=== PATIENT | female | born 1975 | race Caucasian/White ===

== ENCOUNTER 2016-11-26 13:30 | Emergency (ER) | payer OTHER ==
[~2016-11-26] VITALS: Ht 152.4 cm; Wt 68.9 kg
[~2016-11-26 13:30] MED LIST: AGM875T PO; ALPR1T; BUSP15TA60 PO; CARBATROL; CLON1TAB69; CRB200T PO; CYAN500T2 PO; CYCL10TA45; DESV50TA PO; DIAZ10TA PO; DIAZ5TAB3 PO; EPIDRIN; ESCI20TA2 PO; ESCI20TA38 PO; FLUO40CA; FLX20C; GABA-490 PO; HYDR25CA5; HYDR50CA3 PO; HYDROCODONE; Hydroxyzine Hcl PO; IBUP-30 PO; KLONIPIN; LAMO200T14 PO; LAMO200T2 PO; LEVE100015; LEVE500T6; LEVE750T5 PO; LISD50CA2 PO; LORA-794 PO; LORA1TAB PO; LTH300C; LTH450TCR; MELA10TA PO; MELOXICAM; METH750T3; NF-ESOM40C PO; PRAZ1CAP5 PO; PREMARIN; PROP10TA8 PO; PRX20T; QUET150T PO; RISPERDAL; TEMA30CA6; TOPI200T19 PO; TRAZ150T42 PO; TRAZ300T3; TRAZ300T3 PO; TRILIPTAL; ZIPR80CA9 PO; ZLP10T; ZPR40C PO; [UNRECOGNIZED DRUG - OTHER]; [UNRECOGNIZED DRUG - OTHER]; [UNRECOGNIZED DRUG - OTHER]
--- OUTSIDE RECORDS SUMMARY | 2016-11-26 13:40 | XMS REPORT | Continuity of Care Document ---
Author Author [facility] Organization [facility] Address Unknown Phone Unavailable Care Team Providers Care Thickener Operator Name Role Phone Emma Cordero PCP [phone] Source Comments Some departments are not documenting in the electronic medical record. If you do not see the information that you expected, contact Release of Information in the Health Information Management department at [phone] for further assistance in locating additional records.[facility] Active Allergies and Adverse Reactions Allergen Noted Date Severity Reactions Comments Effexor 12/26/2015 Low UNKNOWN Tramadol 03/26/2011 SEE COMMENTS seizures Trileptal 03/26/2011 Low SEE COMMENTS Seizures and low na. Current Medications Prescription Sig. Disp. Refills Start End Date Status Date diazepam (VALIUM) 5 mg PO Take 5 mg by mouth twice Active tablet daily as needed for Anxiety. ESCITALOPRAM OXALATE Take 20 mg by mouth Active (LEXAPRO PO) daily. trazodone (DESYREL) 50 mg Take 150 mg by mouth at Active PO tablet bedtime daily. 150mg-300mg HS hydrOXYzine (ATARAX) 10 Take 50 mg by mouth four Active mg PO tablet times daily as needed. propranolol (INDERAL) 10 Take 20 mg by mouth as Active mg PO tablet directed. 20mg up to 3x daily for anxiety/blood pressure Indications: anxiety IBUPROFEN (ADVIL PO) Take 800 mg by mouth as Active Needed (600-800mg). prazosin (MINIPRESS) 2 mg Take 1-2 mg by mouth at Active capsule bedtime daily. lisdexamfetamine(+) Take 50 mg by mouth every Active (VYVANSE) 50 mg capsule morning FLUTICASONE PROPIONATE Use 50 mcg as directed as Active (BULK) MISC Needed. doxycycline (VIBRAMYCIN) Take 100 mg by mouth Active 100 mg tablet twice daily. Temporary for MRSA SULFAMETHOXAZOLE/TRIMETHO Take 160 mg by mouth Active PRIM (SEPTRA PO) twice daily. Temporarily for MRSA MULTIVITAMINS WITH Take 2 Tabs by mouth Active FLUORIDE (MULTI-VITAMIN daily. PO) DOCOSAHEXANOIC ACID/EPA Take 600 mg by mouth Active (FISH OIL PO) daily. cholecalciferol (VITAMIN Take 1,000 Units by mouth Active D-3) 1,000 units tablet daily. Magnesium 250 mg tab Take 250 mg by mouth Active daily. cetirizine (ZYRTEC) 10 mg Take 10 mg by mouth Active tablet daily. levETIRAcetam (KEPPRA) Take 1 Tab by mouth twice 60 Tab 11 12/26/19 Active 500 mg tablet daily. Indications: 16 PARTIAL EPILEPSY TREATMENT ADJUNCT buPROPion SR(+) Take 100 mg by mouth Active (WELLBUTRIN-SR) 100 mg twice daily. tablet pantoprazole DR Take 40 mg by mouth as Active (PROTONIX) 40 mg tablet Needed. Indications: GASTROESOPHAGEAL REFLUX amphetamine-dextroampheta Take 20 mg by mouth three Active mine XR (ADDERALL XR) 20 times daily mg capsule clonazePAM (KLONOPIN) 1 Take 1 mg by mouth twice Active mg tablet daily as needed (anxiety). amitriptyline (ELAVIL) 10 Take 30-50 mg by mouth at Active mg tablet bedtime as needed (tension SALCEDO/ stress geriatric physical therapist). ondansetron hcl (ZOFRAN) Take 8 mg by mouth every Active 8 mg tablet 8 hours as needed for Nausea or Vomiting. OLANZapine (ZYPREXA) 5 mg Take 2.5-5 mg by mouth at Active tablet bedtime daily. cyanocobalamin (VITAMIN Take 1,500 mcg by mouth Active B-12) 1,000 mcg tablet daily. turmeric root extract 500 Take 500 mg by mouth Active mg cap twice daily. Garlic 1,000 mg cap Take 1,000 mg by mouth. Active Up to 4x daily RADHIKA ROOT (BULK) MISC Use 550 mg as directed Active daily. Lactobacillus rhamnosus Take by mouth as Active GG (LACTOBACILLUS directed twice daily with RHAMNOSUS (GG)) 15 meals. 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 09/19/2016 Most Recent Encounters Date Type Specialty Providers Description 09/19/2016 Office Visit Neurology Mike Pearce MD Nonepileptic episode (HCC) (Primary Dx); Nonintractable epilepsy without status epilepticus, unspecified epilepsy type (HCC); Panic disorder with agoraphobia Immunizations Name Dates Previously Given Next Due FLU VACCINE >3YO 10/20/2008 (Preservative Free) Social History Tobacco Use Types Packs/Day Years Used Date Current Every Day Smoker Cigarettes 1 7 Smokeless Tobacco: Never Used Alcohol Use Drinks/Week oz/Week Comments No 1 Last Filed Vital Signs Vital Sign Reading Time Taken Blood Pressure 139/70 09/19/2016 9:59 AM DATA ACQUISITION TECHNICIAN Pulse 58 09/19/2016 9:59 AM DATA ACQUISITION TECHNICIAN Temperature 37 C (98.6 F) 04/25/2011 5:17 PM CDT Respiratory Rate - - Height 1.524 m (5') 09/19/2016 9:59 AM DATA ACQUISITION TECHNICIAN Weight 72.122 kg (159 lb) 09/19/2016 9:59 AM DATA ACQUISITION TECHNICIAN Body Mass Index 31.05 09/19/2016 9:59 AM DATA ACQUISITION TECHNICIAN Oxygen Saturation 100% 09/19/2016 9:59 AM DATA ACQUISITION TECHNICIAN Plan of Care Date Type Specialty Providers Description 03/25/2017 Appointment Neurology Mike Pearce MD [address] [facility] [place] [address] [place] [address] [phone] (Fax) Health Maintenance Due Date Last Done Comments Physical (Comprehensive) 1980 Exam Pertussis Vaccine 1984 Tetanus Vaccine 1990 Cervical Cancer Screening 1994 Breast Cancer Screening 2013 Influenza Vaccine 05/17/2016 10/20/2008 Results from Last 3 Months Not on file
--- NOTE | 2016-11-26 14:38 | ED General ---
General Chief Complaint: Back Problems Stated Complaint: LOW BACK PAIN/UTI SYMPTOMS LETHARGIC Nursing Triage Note: Pt c/o low back pain x2 weeks and urinary frequency. Pt also c/o lower abd pain. Nursing Sepsis Screen: No Definite Risk Source of Information: Patient, Spouse Exam Limitations: No Limitations History of Present Illness Time Seen by Provider: 14:21 Initial Comments Patient presents to the ED with numerous complaints. Patient initially reported low back pain for 2 weeks as well as urinary frequency and lower abdominal pain. Patient states lower abdominal pain has been present for at least a couple of years. Patient is very difficult to keep focused and is a poor historian. Flight of ideas. Patient repeatedly reverts back to concern over MRSA "everywhere". Denies fevers, vomiting, diarrhea. Patient has multiple specialist. Patient is convinced that she has MRSA in her lungs and blood based on her research online. Timing/Duration: Other (2 wk onset of urinary symptoms and LBP. "a couple year " h/o lower abdominal pain.) Modifying Factors: worse with Medication (no improvement with antibiotics) Allergies and Home Medications Allergies Coded Allergies: carisoprodol (Unverified Allergy, Mild, 03/27/09) oxcarbazepine (Unverified Allergy, Mild, 03/27/09) tramadol (Unverified Allergy, Unknown, 03/12/15) Home Medications 10 MG TAB #30 10 MG PO TID PRN PRN ANXIETY Prescribed by: DAISY ABARCA on 03/14/15 1244 Amoxicillin/Clavulanate K 875 Mg Tab #12 875 MG PO BID WITH MEALS Prescribed by: DAISY ABARCA on 03/14/15 1244 Mupirocin Calcium 15 Gm Cream..g. #1 15 GM TP UD apply bactroban to the nostrils BID x5d. Repeatedly squeeze the nostrils for 1-2 min after application. Prescribed by: TIFFANY VORA on 11/26/161947 Ondansetron 8 Mg Tab.rapdis #10 8 MG PO Q6H PRN PRN NAUSEA Prescribed by: TIFFANY VORA on 11/26/161947 Constitutional: No chills, No diaphoresis, dizzinessNo fever, malaise other ( fatigue) EENTM: no symptoms reported Respiratory: No cough, No short of breath, No stridor, No wheezing Cardiovascular: no symptoms reported Gastrointestinal: see HPI abdominal painNo constipation, No diarrhea, No nausea, No vomiting Genitourinary: see HPINo decreased output, No discharge, No dysuria, frequencyNo hematuria, pain (suprapubic pain) Musculoskeletal: no symptoms reported Skin: other (states she has "MRSA everywhere".) Psychiatric/Neurological: No Symptoms Reported All Other Systems Reviewed Negative Unless Noted: Yes (Negative excepted noted.) Past Gunmben-Gcmqmx-Msqqof Hx Patient Social History Recent Foreign Travel: No Contact w/Someone Who Travel: No Recent Infectious Disease Expo: No Immunizations Up To Date Tetanus Booster (TDap): Unknown Surgeries HX Surgeries: Yes (HYSTERECTOMY,APPY,ENDOMETRIOSIS REMOVED) Surgeries: Appendectomy, Hysterectomy Respiratory Hx Respiratory Disorders: No Cardiovascular Hx Cardiac Disorders: No Neurological Hx Neurological Disorders: Yes Reproductive System Hx Reproductive Disorders: Yes (GR6,PARA3-2MISCARRIAGES,1 TUBAL PREG.) Genitourinary Hx Genitourinary Disorders: Yes (BLADDER TIE-UP,HURTS WHEN URINATES) Gastrointestinal Hx Gastrointestinal Disorders: Yes Musculoskeletal Hx Musculoskeletal Disorders: No Endocrine Hx Endocrine Disorders: Yes HEENT HX ENT Disorders: No Psychosocial Hx Psychiatric Problems: Yes (DIAGNOSED BIPOLAR PER PT) Behavioral Health Disorders: Suicide Attempts, Depression Integumentary HX Skin/Integumentary Disorder: Yes ("MRSA everywhere") Blood Transfusions Hx Blood Disorders: No Reviewed Nursing Assessment Reviewed/Agree w Nursing PMH: Yes Family Medical History Significant Family History: No Pertinent Family Hx Family Medial History: Physical Exam Vital Signs Vital Sign - Last 12Hours 11/26/16 14:23 Temp 97.3 Pulse 85 Resp 18 B/P 140/80 Pulse Ox 100 O2 Delivery Room Air Capillary Refill : Less Than 3 Seconds General Appearance: WD/WN Anxious Eyes: Bilateral Eye EOMI, Bilateral Eye Normal Inspection, Bilateral Eye PERRL HEENT: PERRL/EOMI Pharynx Normal Other (oral mucosa dry. Multiple scars on the face (from previous infections per patient).) Neck: Full Range of Motion Normal Inspection Non Tender Supple Respiratory: Lungs Clear Normal Breath Sounds No Accessory Muscle Use No Respiratory Distress Cardiovascular: Regular Rate, Rhythm No Murmur Normal Peripheral Pulses Gastrointestinal: Normal Bowel Sounds No Organomegaly SoftNo Distended, Guarding (generalized)No Mass, No Rebound, Tenderness (generalized tenderness.) Back: Normal Inspection Extremity: Normal Capillary Refill Normal Inspection No Pedal Edema Neurologic/Psychiatric: Alert Oriented x3 Depressed Affect Other (patient is very tearful and anxious.) Skin: Normal Color Warm/Dry Other (Multiple scars on the face (from previous infections per patient).) Progress/Results/Core Measures Results/Orders Lab Results My Orders Medications Given in ED Vital Signs/I&O Blood Pressure Mean: 100 Diagnostic Imaging Diagonstic Imaging: CT Plain Films/CT/US/NM/MRI: abdomen, pelvis Comments DISCUSSION: The visualized lung bases are unremarkable. Normal heart size. No pleural or pericardial fluid. The gallbladder is mostly contracted though otherwise unremarkable. The liver, stomach, pancreas, spleen, and adrenal glands are unremarkable. The kidneys appear normal bilaterally without stone, hydronephrosis, or mass. The uterus is surgically absent. The urinary bladder is unremarkable. Mild constipation. No obstruction, pneumatosis or pneumoperitoneum. No ascites or pathologically enlarged lymph nodes identified. The abdominal aorta is normal in caliber. No acute osseous abnormality identified. IMPRESSION: 1. Constipation. No other acute abnormality identified. Dictated by: Dictated on workstation # [id number] Reviewed: Reviewed by Me (radiology report reviewed by me.) Departure Communication Progress Notes Laboratory findings discussed with the patient. Patient is very agitated as no one will perform blood cultures. Patient also continues to have moderate abdominal generalized tenderness. We'll proceed with sedimentation rate, CRP, CT scan of the abdomen and pelvis, and blood cultures. 1945 all laboratory findings and diagnostic findings discussed with patient. Patient reports feeling much better after IV fluids and medications. Proceed with discharge to home. Patient states she is scheduled to see the [facility] at the end of this month. Patient case discussed with Dr. Villarreal. Dr. Villarreal reports patient is scheduled to see infectious disease in [place] December 13. Request patient to follow-up as an outpatient in the office for recheck. Recommendations by Dr. Villarreal were discussed with the patient. Patient has aggravated and states she is seeing the [facility] and does not understand why everybody keeps saying she is seeing infectious disease. Advised patient to proceed with the appointment as previously scheduled and to contact Dr. Villarreal's office for follow-up appointment. All return precautions were discussed with the patient. Patient voices understanding and agrees with the treatment plan. Patient case discussed with Dr. Kamara, he agrees with the plan of care. Impression Impression: Primary Impression: Abdominal pain Additional Impressions: Constipation History of MRSA infection Disposition: 01 HOME, SELF-CARE Condition: Improved Departure-Patient Inst. Decision time for Depature: 19:42 Referrals: JACEK VILLARREAL MD (PCP/Family) Primary Care Physician Patient Instructions: Acute Abdomen (Belly Pain), Child (DC) Add. Discharge Instructions: All discharge instructions reviewed with patient and/or family. Voiced understanding. Medications as instructed. Continue usual home medications. Metamucil, Citrucel, or Benefiber [id number] as directed for constipation. Colace stool softener 100 mg by mouth 2-3 times daily as needed for constipation. Drink plenty of fluids. Dulcolax suppository or magnesium citrate [id number] for severe constipation. Follow-up with the specialist at [facility] December 13 as previously scheduled. Follow-up with [facility] for recheck. Return to the emergency department for worsened pain, fever, vomiting, vomiting blood, rectal bleeding, black stools, inability to urinate, fever, or any other concerns. Scripts Ondansetron (Zofran Odt)8 Mg Tab.rapdis8 Mg PO Q6H PRN NAUSEA #10 TAB Ref 0 Prov:TIFFANY VORA 11/26/16 Mupirocin Calcium (Bactroban)15 Gm Cream..g.15 Gm TP UD #1 TUBE Ref 0 apply bactroban to the nostrils BID x5d. Repeatedly squeeze the nostrils for 1-2 min after application. Prov:TIFFANY VORA 11/26/16 TIFFANY VORA Nov 26, 2016 14:38 Urine Bacteria NONE /HPF Urine Barbiturates Screen NEGATIVE NEGATIVE Urine Benzodiazepines Screen POSITIVE H NEGATIVE Urine Bilirubin NEGATIVE NEGATIVE Urine Cannabinoids Screen NEGATIVE NEGATIVE Urine Casts NONE /LPF Urine Clarity CLEAR Urine Cocaine Screen NEGATIVE NEGATIVE Urine Color YELLOW Urine Crystals NONE /LPF Urine Culture Indicated NO Urine Glucose (UA) NEGATIVE NEGATIVE Urine Ketones NEGATIVE NEGATIVE Urine Leukocyte Esterase NEGATIVE NEGATIVE Urine Methadone Screen NEGATIVE NEGATIVE Urine Methamphetamines Screen NEGATIVE NEGATIVE Urine Mucus NEGATIVE /LPF Urine Nitrite NEGATIVE NEGATIVE Urine Opiates Screen NEGATIVE NEGATIVE Urine Oxycodone Screen NEGATIVE NEGATIVE Urine Phencyclidine Screen NEGATIVE NEGATIVE Urine Propoxyphene Screen NEGATIVE NEGATIVE Urine Protein NEGATIVE NEGATIVE Urine RBC NONE /HPF Urine RBC (Auto) NEGATIVE NEGATIVE Urine Specific Ethel 1.020 1.016-1.022 Urine Squamous Epithelial Cells 2-5 /HPF Urine Urobilinogen NORMAL NORMAL MG/DL Urine WBC NONE /HPF Urine pH 6 5-9 My Orders Orders-TIFFANY VORA Ua Culture If Indicated (11/26/16 14:21) Saline Lock/Iv-Start (11/26/16 15:19) Comprehensive Metabolic Panel (11/26/16 15:19) Cbc With Automated Diff (11/26/16 15:19) Drug Screen Stat (Urine) (11/26/16 15:24) Ns Iv 1000 Ml (Sodium Chloride 0.9%) (11/26/16 16:10) Blood Culture (11/26/16 17:02) Ct Abdomen/Pelvis W (11/26/16 17:02) Hs C Reactive Protein (11/26/16 17:02) Erythrocyte Sedimentation Rate (11/26/16 17:02) Ketorolac Injection (Toradol Injection) (11/26/16 17:02) Iohexol Injection (Omnipaque 350 Mg/Ml 1 (11/26/16 17:15) Ns (Ivpb) (Sodium Chloride 0.9% Ivpb Bag (11/26/16 17:15) Medications Given in ED Current Medications Medications Dose Ordered Sig/Michael Route Start Time Stop Time Status Last Admin Dose Admin Iohexol 100 ml ONCE ONCE IV 11/26/16 17:15 11/26/16 17:16 DC 11/26/16 18:34 100 ML Sodium Chloride 100 ml ONCE ONCE IV 11/26/16 17:15 11/26/16 17:16 DC 11/26/16 18:34 80 ML Sodium Chloride 1,000 ml @ 0 mls/hr Q0M ONCE IV 11/26/16 16:10 11/26/16 16:11 DC 11/26/16 17:32 0 MLS/HR Vital Signs/I&O Vital Sign - Last 12Hours 11/26/16 11/26/16 14:23 17:31 Temp 97.3 97.3 Pulse 85 Resp 18 B/P 140/80 Pulse Ox 100 O2 Delivery Room Air Blood Pressure Mean: 100 Departure Impression Impression: Primary Impression: Abdominal pain Additional Impressions: Constipation History of MRSA infection Disposition: 01 HOME, SELF-CARE Condition: Improved Departure-Patient Inst. Decision time for Depature: 19:42 Referrals: JACEK VILLARREAL MD (PCP/Family) Primary Care Physician Patient Instructions: Acute Abdomen (Belly Pain), Child (DC) Add. Discharge Instructions: All discharge instructions reviewed with patient and/or family. Voiced understanding. Medications as instructed. Continue usual home medications. Metamucil, Citrucel, or Benefiber [id number] as directed for constipation. Colace stool softener 100 mg by mouth 2-3 times daily as needed for constipation. Drink plenty of fluids. Dulcolax suppository or magnesium citrate [id number] for severe constipation. Follow-up with the specialist at [facility] December 13 as previously scheduled. Follow-up with [facility] for recheck. Return to the emergency department for worsened pain, fever, vomiting, vomiting blood, rectal bleeding, black stools, inability to urinate, fever, or any other concerns. Scripts Ondansetron (Zofran Odt)8 Mg Tab.rapdis8 Mg PO Q6H PRN NAUSEA #10 TAB Ref 0 Prov:TIFFANY VORA 11/26/16 Mupirocin Calcium (Bactroban)15 Gm Cream..g.15 Gm TP UD #1 TUBE Ref 0 apply bactroban to the nostrils BID x5d. Repeatedly squeeze the nostrils for 1-2 min after application. Prov:TIFFANY VORA 11/26/16 TIFFANY VORA Nov 26, 2016 14:38
[2016-11-26 15:38] LABS: BILIRUBIN,URINE NEGATIVE (NEGATIVE); KETONES,URINE NEGATIVE (NEGATIVE); LEUKOCYTE ESTERASE ,URINE NEGATIVE (NEGATIVE); NITRITE,URINE NEGATIVE (NEGATIVE); PH,URINE 6 (5-9); PROTEIN,URINE NEGATIVE (NEGATIVE); UROBILINOGEN,URINE NORMAL (NORMAL)
[2016-11-26 15:38] LABS: BASOPHILS % (AUTO) 0 % (0-10); EOSINOPHILS # (AUTO) 0.2 10^3/uL (0.0-0.3); EOSINOPHILS % (AUTO) 3 % (0-10); LYMPHOCYTES # (AUTO) 2.4 X 10^3 (1.0-4.0); LYMPHOCYTES % (AUTO) 37 % (12-44); MEAN CORPUSCULAR HEMOGLOBIN 30 PG (25-34); MEAN CORPUSCULAR HGB CONC 35 G/DL (32-36); MEAN CORPUSCULAR VOLUME 85 FL (80-99); MONOCYTES # (AUTO) 0.5 X 10^3 (0.0-1.0); MONOCYTES % (AUTO) 7 % (0-12); NEUTROPHILS # (AUTO) 3.4 X 10^3 (1.8-7.8); NEUTROPHILS % (AUTO) 52 % (42-75); PLATELET COUNT 299 10^3/uL (130-400); RED BLOOD COUNT 4.72 10^6/uL (4.35-5.85); RED CELL DISTRIBUTION WIDTH 12.3 % (10.0-14.5); WHITE BLOOD COUNT 6.5 10^3/uL (4.3-11.0)
[2016-11-26 15:56] LABS: ALBUMIN 4.5 G/DL (3.2-4.5); BILIRUBIN,TOTAL 0.2 MG/DL (0.1-1.0); CALCIUM 9.1 MG/DL (8.5-10.1); CREATININE SERUM 1.16 MG/DL (0.60-1.30); POTASSIUM 4.8 MMOL/L (3.6-5.0); TOTAL PROTEIN 6.9 G/DL (6.4-8.2)
[2016-11-26] MEDS ORDERED: NS IV 1000 ML 1,000 ML IV ONE (16:10)
[2016-11-26] MEDS ORDERED: KETOROLAC 30 MG/ML VIAL IVP STA (17:02)
[2016-11-26] MEDS ORDERED: IOHEXOL 350 MG/ML 100 ML (OMNIPAQUE 350) VIAL IV ONE (17:15)
[2016-11-26] MEDS ORDERED: NS 100 ML (IVPB) BAG IV ONE (17:15)
--- NOTE | 2016-11-26 18:55 | Diagnostic Imaging Report ---
PROCEDURE: CT abdomen and pelvis with contrast. TECHNIQUE: Multiple contiguous axial images were obtained through the abdomen and pelvis after administration of intravenous contrast. INDICATION: Right-sided abdominal pain with intermittent nausea for 8 months. COMPARISON: 01/30/2008. DISCUSSION: The visualized lung bases are unremarkable. Normal heart size. No pleural or pericardial fluid. The gallbladder is mostly contracted though otherwise unremarkable. The liver, stomach, pancreas, spleen, and adrenal glands are unremarkable. The kidneys appear normal bilaterally without stone, hydronephrosis, or mass. The uterus is surgically absent. The urinary bladder is unremarkable. Mild constipation. No obstruction, pneumatosis or pneumoperitoneum. No ascites or pathologically enlarged lymph nodes identified. The abdominal aorta is normal in caliber. No acute osseous abnormality identified. IMPRESSION: 1. Constipation. No other acute abnormality identified. Dictated by: Dictated on workstation # [id number]
[2016-11-26] MEDS ORDERED: MUPI15CR TP (19:48)
[2016-11-26] MEDS ORDERED: ONDA8TAB9 PO (19:48)
[2016-11-26] MEDS ORDERED: HYDROcodone/APAP 5 MG/325 MG (LORTAB) TAB PO STA (19:49)
[2016-11-26] MEDS ORDERED: HYDROcodone/APAP 5 MG/325 MG (LORTAB) TAB ONE (19:49)
[2016-11-26 19:55] VITALS: BP 142/76
== END 2016-11-26 19:55 | disposition home or self-care (01) ==
LOC: EDUNIT# 13:30 → ER 13:35
DX: K59.00 Constipation, unspecified (principal); Z86.14 Personal history of Methicillin resistant Staphylococcus aureus infection
CPT/HCPCS: 36415; 74177; 80053; 80306; 81000; 85025; 85652; 86141; 87040; 96361; 96374

== ENCOUNTER 2017-03-22 15:32 | Emergency (ER) | payer OTHER ==
[~2017-03-22] VITALS: Ht 152.4 cm; Wt 68.0 kg
[~2017-03-22 15:32] MED LIST changes: +MUPI15CR TP; +ONDA8TAB9 PO
[2017-03-22] MEDS ORDERED: ONDANSETRON 4 MG/2 ML (SDV) Z0FRAN ONE (15:34)
[2017-03-22 16:02] LABS: BASOPHILS % (AUTO) 0 % (0-10); EOSINOPHILS % (AUTO) 0 % (0-10); LYMPHOCYTES # (AUTO) 1.5 X 10^3 (1.0-4.0); LYMPHOCYTES % (AUTO) 23 % (12-44); MEAN CORPUSCULAR HEMOGLOBIN 31 PG (25-34); MEAN CORPUSCULAR HGB CONC 36 G/DL (32-36); MEAN CORPUSCULAR VOLUME 87 FL (80-99); MEAN PLATELET VOLUME 9.6 FL (7.4-10.4); MONOCYTES # (AUTO) 0.3 X 10^3 (0.0-1.0); MONOCYTES % (AUTO) 5 % (0-12); NEUTROPHILS # (AUTO) 4.8 X 10^3 (1.8-7.8); NEUTROPHILS % (AUTO) 72 % (42-75); PLATELET COUNT 293 10^3/uL (130-400); RED BLOOD COUNT 4.73 10^6/uL (4.35-5.85); WHITE BLOOD COUNT 6.7 10^3/uL (4.3-11.0)
--- NOTE | 2017-03-22 16:05 | ED General ---
General Chief Complaint: Neurological Problems Stated Complaint: SEIZURE Nursing Triage Note: PT BROUGHT IN BY [facility] WITH C/O SEIZURE LIKE ACTIVITY. PT REPORTEDLY QUIT DRINKING ETOH APPROX 1 YEAR AGO, BUT STATES SHE DRANK A 12 PACK OF BEER SINCE 0500 THIS AM. SHE REPORTS SHE HAS BEEN HAVING FLASHBACKS AND THIS IS WHAT CAUSED HER TO DRINK. PT IS VOMITING UPON ARRIVAL TO ED. PT DOES NOT APPEAR TO BE POST ICTAL PT IS A&O X 4 AT THIS TIME. Nursing Sepsis Screen: No Definite Risk Source of Information: Patient Exam Limitations: No Limitations History of Present Illness Time Seen by Provider: 16:04 Initial Comments to ER per EMS from home with reports of seizure-like activity. Patient reportedly quit drinking about a year ago but due to bad dreams and nightmares and flashbacks to her childhood traumas, she began drinking again about a month ago. She's had a 12 pack of beer since 5 a.m. this morning. Timing/Duration: 1-2 Days Severity: Moderate Allergies and Home Medications Allergies Coded Allergies: carisoprodol (Unverified Allergy, Mild, 03/27/09) oxcarbazepine (Unverified Allergy, Mild, 03/27/09) tramadol (Unverified Allergy, Unknown, 03/12/15) Home Medications Amoxicillin/Clavulanate K 875 Mg Tab, 875 MG PO BID WITH MEALS, #12 Prescribed by: DAISY ABARCA on 03/14/15 1244 Mupirocin Calcium 15 Gm Cream..g., 15 GM TP UD, #1 Ref 0 apply bactroban to the nostrils BID x5d. Repeatedly squeeze the nostrils for 1-2 min after application. Prescribed by: TIFFANY VORA on 11/26/161947 Ondansetron 8 Mg Tab.rapdis, 8 MG PO Q6H PRN for NAUSEA, #10 Ref 0 Prescribed by: TIFFANY VORA on 11/26/161947 [Hydroxyzine Hcl] 10 MG TAB, 10 MG PO TID PRN for ANXIETY, #30 Prescribed by: DAISY ABARCA on 03/14/15 1244 Constitutional: see HPI EENTM: see HPI Respiratory: no symptoms reported Cardiovascular: no symptoms reported Genitourinary: no symptoms reported Musculoskeletal: no symptoms reported Skin: no symptoms reported Psychiatric/Neurological: See HPI Hematologic/Lymphatic: No Symptoms Reported Past Rpbucpr-Rkthbv-Ymurwt Hx Patient Social History Alcohol Use: Past History Recreational Drug Use: No Smoking Status: Current Everyday Smoker Type Used: Cigarettes 2nd Hand Smoke Exposure: No Recent Foreign Travel: No Contact w/Someone Who Travel: No Recent Infectious Disease Expo: No Recent Hopitalizations: No (MULTIPLE SUICIDE ATTEMPTS) Immunizations Up To Date Tetanus Booster (TDap): Unknown Surgeries HX Surgeries: Yes (HYSTERECTOMY,APPY,ENDOMETRIOSIS REMOVED) Surgeries: Appendectomy, Hysterectomy Respiratory Hx Respiratory Disorders: No Cardiovascular Hx Cardiac Disorders: No Neurological Hx Neurological Disorders: Yes Neurological Disorders: Headaches /Migraines, Seizure Disorder Reproductive System Hx Reproductive Disorders: Yes (GR6,PARA3-2MISCARRIAGES,1 TUBAL PREG.) Genitourinary Hx Genitourinary Disorders: Yes (BLADDER TIE-UP,HURTS WHEN URINATES) Gastrointestinal Hx Gastrointestinal Disorders: Yes Musculoskeletal Hx Musculoskeletal Disorders: No Endocrine Hx Endocrine Disorders: Yes HEENT HX ENT Disorders: No Psychosocial Hx Psychiatric Problems: Yes (DIAGNOSED BIPOLAR PER PT) Behavioral Health Disorders: PTSD, Suicide Attempts, Depression Integumentary HX Skin/Integumentary Disorder: Yes ("MRSA everywhere") Blood Transfusions Hx Blood Disorders: No Family Medical History Significant Family History: No Pertinent Family Hx Family Medial History: Physical Exam Vital Signs Vital Sign - Last 12Hours 03/22/17 15:45 Temp 98.3 Pulse 139 Resp 18 B/P (MAP) 155/99 Pulse Ox 96 O2 Delivery Room Air Capillary Refill : Less Than 3 Seconds General Appearance: No Apparent Distress, WD/WN Eyes: Bilateral Eye EOMI, Bilateral Eye Normal Inspection, Bilateral Eye PERRL HEENT: PERRL/EOMI, TMs Normal Neck: Full Range of Motion, Normal Inspection Respiratory: No Accessory Muscle Use, No Respiratory Distress Cardiovascular: Regular Rate, Rhythm, Normal Peripheral Pulses Gastrointestinal: Non Tender, Soft Extremity: Normal Capillary Refill, Normal Inspection Neurologic/Psychiatric: Alert, Oriented x3, No Motor/Sensory Deficits Skin: Normal Color, Warm/Dry Progress/Results/Core Measures Results/Orders Lab Results Laboratory Tests Test 03/22/17 15:37 03/22/17 17:20 Range/Units White Blood Count 6.7 4.3-11.0 10^3/uL Red Blood Count 4.73 4.35-5.85 10^6/uL Hemoglobin 14.5 11.5-16.0 G/DL Hematocrit 41 35-52 % Mean Corpuscular Volume 87 80-99 FL Mean Corpuscular Hemoglobin 31 25-34 PG Mean Corpuscular Hemoglobin Concent 36 32-36 G/DL Red Cell Distribution Width 13.0 10.0-14.5 % Platelet Count 293 130-400 10^3/uL Mean Platelet Volume 9.6 7.4-10.4 FL Neutrophils (%) (Auto) 72 42-75 % Lymphocytes (%) (Auto) 23 12-44 % Monocytes (%) (Auto) 5 0-12 % Eosinophils (%) (Auto) 0 0-10 % Basophils (%) (Auto) 0 0-10 % Neutrophils # (Auto) 4.8 1.8-7.8 X 10^3 Lymphocytes # (Auto) 1.5 1.0-4.0 X 10^3 Monocytes # (Auto) 0.3 0.0-1.0 X 10^3 Eosinophils # (Auto) 0.0 0.0-0.3 10^3/uL Basophils # (Auto) 0.0 0.0-0.1 10^3/uL Sodium Level 130 L 135-145 MMOL/L Potassium Level 4.2 3.6-5.0 MMOL/L Chloride Level 94 L 98-107 MMOL/L Carbon Dioxide Level 22 21-32 MMOL/L Anion Gap 14 5-14 MMOL/L Blood Urea Nitrogen 8 7-18 MG/DL Creatinine 0.70 0.60-1.30 MG/DL Estimat Glomerular Filtration Rate > 60 BUN/Creatinine Ratio 11 Glucose Level 130 H 70-105 MG/DL Calcium Level 9.0 8.5-10.1 MG/DL Total Bilirubin 0.3 0.1-1.0 MG/DL Aspartate Amino Transf (AST/SGOT) 34 5-34 U/L Alanine Aminotransferase (ALT/SGPT) 36 0-55 U/L Alkaline Phosphatase 85 40-136 U/L Total Protein 7.8 6.4-8.2 GM/DL Albumin 4.7 H 3.2-4.5 GM/DL Serum Test, Qualitative NEGATIVE NEGATIVE Serum Alcohol 272 H <10 MG/DL Urine Color YELLOW Urine Clarity CLEAR Urine pH 7 5-9 Urine Specific [place] 1.010 L 1.016-1.022 Urine Protein 1+ H NEGATIVE Urine Glucose (UA) NEGATIVE NEGATIVE Urine Ketones NEGATIVE NEGATIVE Urine Nitrite NEGATIVE NEGATIVE Urine Bilirubin NEGATIVE NEGATIVE Urine Urobilinogen NORMAL NORMAL MG/DL Urine Leukocyte Esterase NEGATIVE NEGATIVE Urine RBC (Auto) NEGATIVE NEGATIVE Urine RBC NONE /HPF Urine WBC NONE /HPF Urine Squamous Epithelial Cells RARE /HPF Urine Crystals NONE /LPF Urine Bacteria NEGATIVE /HPF Urine Casts NONE /LPF Urine Mucus NEGATIVE /LPF Urine Culture Indicated NO Urine Opiates Screen NEGATIVE NEGATIVE Urine Oxycodone Screen NEGATIVE NEGATIVE Urine Methadone Screen NEGATIVE NEGATIVE Urine Propoxyphene Screen NEGATIVE NEGATIVE Urine Barbiturates Screen NEGATIVE NEGATIVE Ur Tricyclic Antidepressants Screen NEGATIVE NEGATIVE Urine Phencyclidine Screen NEGATIVE NEGATIVE Urine Amphetamines Screen POSITIVE H NEGATIVE Urine Methamphetamines Screen NEGATIVE NEGATIVE Urine Benzodiazepines Screen POSITIVE H NEGATIVE Urine Cocaine Screen NEGATIVE NEGATIVE Urine Cannabinoids Screen NEGATIVE NEGATIVE My Orders Orders - DEONTE RUBIO APRN Cbc With Automated Diff (03/22/17 15:54) Alcohol (03/22/17 15:54) Comprehensive Metabolic Panel (03/22/17 15:54) Ua Culture If Indicated (03/22/17 15:54) Drug Screen Stat (Urine) (03/22/17 16:38) Hcg,Qualitative Serum (03/22/17 16:38) Medications Given in ED Current Medications Medications Dose Ordered Sig/Michael Route Start Time Stop Time Status Last Admin Dose Admin Ondansetron HCl 4 mg STK-MED ONCE .ROUTE 03/22/17 15:34 03/22/17 15:39 DC 03/22/17 15:38 4 MG Vital Signs/I&O Vital Sign - Last 12Hours 03/22/17 15:45 Temp 98.3 Pulse 139 Resp 18 B/P (MAP) 155/99 Pulse Ox 96 O2 Delivery Room Air Blood Pressure Mean: 117 Departure Communication Progress Notes 1757- patient has had no seizure-like activity in the emergency room and her vitals are stable. Impression Impression: Primary Impression: Alcohol intoxication Disposition: 01 HOME, SELF-CARE Condition: Stable Departure-Patient Inst. Decision time for Depature: 16:33 Referrals: JACEK VILLARREAL MD (PCP/Family) Primary Care Physician Patient Instructions: NO INSTRUCTIONS GIVEN Add. Discharge Instructions: 1. Return to ER for any concerns 2. All discharge instructions reviewed with patient and/or family. Voiced understanding. DEONTE RUBIO APRN Mar 22, 2017 16:05
[2017-03-22 16:20] LABS: ALANINE AMINOTRANSFERASE 36 U/L (0-55); ALBUMIN 4.7 GM/DL (3.2-4.5); ALCOHOL 272 MG/DL (<10); ANION GAP 14 MMOL/L (5-14); ASPARTATE AMINO TRANSFERASE 34 U/L (5-34); BILIRUBIN,TOTAL 0.3 MG/DL (0.1-1.0); BLOOD UREA NITROGEN 8 MG/DL (7-18); BUN/CREATININE RATIO 11; CARBON DIOXIDE 22 MMOL/L (21-32); CHLORIDE 94 MMOL/L (98-107); GFR ESTIMATED > 60; GLUCOSE 130 MG/DL (70-105); POTASSIUM 4.2 MMOL/L (3.6-5.0); SODIUM 130 MMOL/L (135-145); TOTAL PROTEIN 7.8 GM/DL (6.4-8.2)
[2017-03-22 17:40] LABS: BILIRUBIN,URINE NEGATIVE (NEGATIVE); KETONES,URINE NEGATIVE (NEGATIVE); LEUKOCYTE ESTERASE ,URINE NEGATIVE (NEGATIVE); NITRITE,URINE NEGATIVE (NEGATIVE); PH,URINE 7 (5-9); PROTEIN,URINE 1+ (NEGATIVE); UROBILINOGEN,URINE NORMAL (NORMAL)
[2017-03-22 17:45] LABS: SQUAMOUS EPITHELIAL CELL,UR RARE /HPF
[2017-03-22 18:06] VITALS: BP 140/84
--- OUTSIDE RECORDS SUMMARY | 2017-03-26 08:03 | XMS REPORT ---
Author Author JACEK VILLARREAL eClinicalWorks Address Unknown Phone Unavailable Care Team Providers Care Army Manager Name Role Phone JACEK VILLARREAL CP Unavailable Allergies, Adverse Reactions, Alerts Substance Reaction Event Type Trileptal Info Not Available Drug Allergy Problems Problem Type Condition ICD-9 Code Onset Dates Condition Status Assessment Screening cholesterol level V77.91 Active Assessment Bipolar disorder 296.80 Active Assessment Excessive drinking alcohol 305.00 Active Problem Posttraumatic stress disorder 309.81 Active Problem Anxiety disorder 300.00 Active Problem Seizure disorder 345.90 Active Problem Excessive drinking alcohol 305.00 Active Assessment Seizure disorder 345.90 Active Problem Bipolar disorder 296.80 Active Problem ADD (attention deficit disorder) 314.00 Active Medications Medication Code System Code Instructions Start Date End Date Status Dosage Abilify [facility] [address]-48 10 MG Orally Once a day [address] [facility] [address]-05 50 MG Orally Once a day 1 tablet Propranolol HCl [facility] [address]-82 10 MG Orally 4 times a day prn 1 tablet Prazosin HCl [facility] [address]-94 1 MG Orally Once a day at hs [address] [facility] [address]-12 100 MG Orally Once a day 1 tablet Trazodone HCl [facility] [address]-35 300 MG Orally Once a day 1 tablet at bedtime Ativan [facility] [address]-00 1 MG Orally Twice a day as needed 1 tablet as needed Vyvanse [facility] [address]-17 50 MG Orally Once a day 1 capsule in the morning Geodon [facility] [address]-68 80 MG Orally Once a day 1 capsule with food Lexapro [facility] [address]-31 20 MG Orally Once a day [address] [facility] [address]-84 500 MG Orally every 12 hrs May 04, 2015 1 tablet Procedures Procedure Coding System Code Date COMPLETE CBC W/AUTO DIFF WBC CPT-4 85843 May 04, 2015 COMPREHEN METABOLIC PANEL CPT-4 62515 May 04, 2015 LIPID PANEL CPT-4 29382 May 04, 2015 Office Visit, New Pt., Level 4 CPT-4 54384 May 04, 2015 VENIPUNCT, ROUTINE* CPT-4 47201 May 04, 2015 Vital Signs Date/Time: May 04, 2015 Temperature 97.8 F Weight 130.9 lbs Height 60 in BMI 25.56 Index Blood Pressure Diastolic 78 mmHg Blood Pressure Systolic 122 mmHg Cardiac Monitoring Heart Rate 88 bpm Results Name Result Date Reference Range Unit Abnormality Flag ROUTINE VENIPUNCTURE CBC Summary Purpose eClinicalWorks Submission
--- OUTSIDE RECORDS SUMMARY | 2017-03-26 08:03 | XMS REPORT ---
Author Author JULIANA CABRAL Organization e[employer] Address Unknown Phone Unavailable Care Team Providers Care Insurance Sales Assistant Name Role Phone JULIANA CABRAL CP Unavailable Allergies No Known Allergies Problems Problem Type Condition Code Onset Dates Condition Status Problem Excessive drinking alcohol F10.10 Active Problem Tension headache G44.209 Active Problem Partial symptomatic epilepsy with complex partial seizures, not intractable, without status epilepticus G40.209 Active Problem Migraine with aura and without status migrainosus, not intractable G43.109 Active Problem Anxiety disorder F41.9 Active Problem Bipolar disorder F31.9 Active Problem 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
--- OUTSIDE RECORDS SUMMARY | 2017-03-26 08:03 | XMS REPORT | Continuity of Care Document ---
Author Author [facility] Organization [facility] Address Unknown Phone Unavailable Care Team Providers Care Warehouse Unloader Name Role Phone Emma Cordero PCP [phone] Source Comments Some departments are not documenting in the electronic medical record. If you do not see the information that you expected, contact Release of Information in the Health Information Management department at [phone] for further assistance in locating additional records.[facility] Active Allergies and Adverse Reactions Allergen Noted [...] tablet bedtime as needed (tension SALCEDO/ stress observation nurse). ondansetron hcl (ZOFRAN) Take 8 mg by [...] Complex partial epilepsy, intractable (HCC) 10/25/2008 09/19/2016 Immunizations Name Dates Previously Given Next Due FLU VACCINE >3YO 10/20/2008 (Preservative Free) Social History Tobacco Use Types Packs/Day Years Used Date Current Every Day Smoker Cigarettes 1 7 Smokeless Tobacco: Never Used Alcohol Use Drinks/Week oz/Week Comments No 1 Last Filed Vital Signs Vital Sign Reading Time Taken Blood Pressure 139/70 09/19/2016 9:59 AM CROP DUSTER Pulse 58 09/19/2016 9:59 AM CROP DUSTER Temperature 37 C (98.6 F) 04/25/2011 5:17 PM CDT Respiratory Rate - - Height 1.524 m (5') 09/19/2016 9:59 AM CROP DUSTER Weight 72.122 kg (159 lb) 09/19/2016 9:59 AM CROP DUSTER Body Mass Index 31.05 09/19/2016 9:59 AM CROP DUSTER Oxygen Saturation 100% 09/19/2016 9:59 AM CROP DUSTER Plan of Care Health Maintenance Due Date Last Done Comments Physical (Comprehensive) 1980 Exam Pertussis Vaccine 1984 Tetanus Vaccine 1990 Cervical Cancer Screening 1994 Breast Cancer Screening 2013 Influenza Vaccine 05/17/2017 10/20/2008 Results from Last 3 Months Not on file
--- OUTSIDE RECORDS SUMMARY | 2017-03-26 08:03 | XMS REPORT ---
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 Martha to sign for Juan Ramon May 20, 2015 1 capsule at noon Topamax [facility] [address]-08 50 MG Orally Once a day 1 tablet Vyvanse [facility] [address]-44 50 MG Orally Once a day. Alexis to sign for Juan Ramon 1 capsule in the morning Trazodone HCl [facility] [address]-01 300 MG Orally Once a day May 20, 2015 1 tablet at bedtime Lexapro [facility] [address]-54 20 MG Orally Once a day Jul 22, 2015 1 tablet Vistaril [facility] [address]-63 25 MG Orally every 6 hrs Aug 22, 2015 1 capsule as needed Diazepam [facility] [address]-44 5 MG Orally twice a day as needed May 20, 2015 1 tablet Prazosin HCl [facility] [address]-50 1 MG Orally Once a day Jun 17, 2015 1 capsule at bedtime Keppra [facility] [address]-01 500 MG Orally every 12 hrs May 04, 2015 1 tablet Propranolol HCl [facility] [address]-51 10 MG Orally four times a day May 20, 2015 1 tablet Risperdal [facility] [address]-59 2 MG Orally twice a day Aug 22, 2015 1 tablet Procedures Procedure Coding System Code Date MH Office Visit, Est Pt., Level 3 CPT-4 16734 Sep 21, 2015 Vital Signs Date/Time: Sep 21, 2015 Cardiac Monitoring Heart Rate 88 bpm Weight 146.6 lbs Height 60 in BMI 28.63 Index Blood Pressure Diastolic 80 mmHg Blood Pressure Systolic 108 mmHg Results No Known Results Summary Purpose eClinicalWorks Submission
--- OUTSIDE RECORDS SUMMARY | 2017-03-26 08:04 | XMS REPORT ---
Author Author JACEK VILLARREAL Organization [facility] Address [address] [place] [address] Care Team Providers Care Research And Development Chemist Name Role Phone JACEK VILLARREAL Unavailable PROBLEMS Type Condition ICD9-CM Code ZAX81-DM Code Onset Dates Condition Status SNOMED Code Problem Excessive drinking alcohol F10.10 Active 116837847 Problem Anxiety disorder F41.9 Active 559555067 Problem Bipolar disorder F31.9 Active 43225918 Problem Bipolar disorder with moderate depression F31.32 Active 733175528 Problem Migraine with aura and without status migrainosus, not intractable G43.109 Active 1844184 Problem 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 088789965 Problem PTSD (post-traumatic stress disorder) F43.10 Active 33261854 Problem Tension headache G44.209 Active 694483845 Problem Partial symptomatic epilepsy with complex partial seizures, not intractable, without status epilepticus G40.209 Active 355350448 ALLERGIES Unknown Allergies SOCIAL HISTORY No smoking Hx information available PLAN OF CARE VITAL SIGNS MEDICATIONS Medication Instructions Dosage Frequency Start Date End Date Duration Status Amitriptyline HCl 10 mg Orally Once a day at bedtime take 3 to 5 tablets Apr, Active RESULTS No Results PROCEDURES No Known procedures IMMUNIZATIONS No Known Immunizations
--- OUTSIDE RECORDS SUMMARY | 2017-03-26 08:04 | XMS REPORT ---
Author Author JULIANA CABRAL [facility] eClinicalWorks Address Unknown Phone Unavailable Care Team Providers Care Satellite Specialist Name Role Phone JULIANA CABRAL CP Unavailable Allergies, Adverse Reactions, Alerts Substance Reaction Event Type Brintellix Info Not Available Drug Allergy Trileptal Info Not Available Drug Allergy Problems Problem Type Condition Code Onset Dates Condition Status Problem Excessive drinking alcohol F10.10 Active Problem Anxiety disorder F41.9 Active Problem Bipolar disorder F31.9 Active Problem Attention deficit hyperactivity disorder F90.9 Active Problem Migraine with aura and without status migrainosus, not intractable G43.109 Active Problem Bipolar disorder (manic depression) F31.9 Active Problem 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 Problem PTSD (post-traumatic stress disorder) F43.10 Active Problem Tension headache G44.209 Active Problem Partial symptomatic epilepsy with complex partial seizures, not intractable, without status epilepticus G40.209 Active Assessment PTSD (post-traumatic stress disorder) F43.10 Active Assessment Attention deficit hyperactivity disorder F90.9 Active Assessment Bipolar disorder (manic depression) F31.9 Active Medications Medication Code System Code Instructions Start Date End Date Status Dosage Omeprazole [facility] [address]-11 40 mg Orally Once a day Apr 24, 2016 1 capsule Trazodone HCl [facility] [address]-33 150 MG Orally Once a day May 16, 2016 1 tablet at bedtime as needed Hibiclens [facility] [address]-74 4 % Externally not defined Amitriptyline HCl [facility] [address]-44 10 mg Orally Once a day at bedtime May 11, 2016 take 3 to 5 tablets Lexapro [facility] [address]-78 20 MG Orally Once a day May 16, 2016 1 tablet Propranolol HCl [facility] [address]-39 10 MG Orally four times a day May 20, 2015 1 tablet Olanzapine [facility] [address]-74 5 MG Orally Once a day Jul 02, 2016 1 tablet Vyvanse [facility] [address]-45 10 mg TAKE ONE CAPSULE BY MOUTH ONCE DAILY AT NOON Vistaril [facility] [address]-38 50 mg Orally as needed every 6 hrs 1 capsule Vyvanse [facility] [address]-09 50 mg Orally Once a day May 16, 2016 1 capsule in the morning Diazepam [facility] [address]-88 5 mg Orally. twice a day as needed May 20, 2015 1 tablet Keppra [facility] [address]-91 500 MG Orally every 12 hrs May 04, 2015 1 tablet Cetirizine HCl [facility] [address]-94 10 MG Orally Once a day 1 tablet as needed Ondansetron HCl [facility] [address]-48 8 MG Orally Every 8 hours as needed with headache Apr 24, 2016 1 tablet Procedures Procedure Coding System Code Date MH Office Visit, Bart Pt., Level 3 CPT-4 35390 Jul 02, 2016 Vital Signs Date/Time: Jul 02, 2016 Cardiac Monitoring Heart Rate 62 bpm Weight 148 lbs Height 60 in BMI 28.90 Index Blood Pressure Diastolic 68 mmHg Blood Pressure Systolic 110 mmHg Results No Known Results Summary Purpose eClinicalWorks Submission
--- OUTSIDE RECORDS SUMMARY | 2017-03-26 08:04 | XMS REPORT ---
Author Author JULIANA CABRAL [facility] eClinicalWorks Address Unknown Phone Unavailable Care Team Providers Care Metaphysician Name Role Phone JULIANA CABRAL CP Unavailable Allergies, Adverse Reactions, Alerts Substance Reaction Event Type Brintellix Info Not Available Drug Allergy Trileptal Info Not Available Drug Allergy Problems Problem Type Condition Code Onset Dates Condition Status Assessment Attention deficit disorder (ADD) without hyperactivity F90.0 Active Problem Posttraumatic stress disorder 309.81 Active Problem Anxiety disorder 300.00 Active Problem Seizure disorder 345.90 Active Problem 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 Assessment Bipolar disorder (manic depression) F31.9 Active Problem Bipolar disorder 296.80 Active Problem Excessive drinking alcohol 305.00 Active Medications Medication Code System Code Instructions Start Date End Date Status Dosage Topamax [facility] [address]-34 50 MG Orally Once a day 1 tablet Lamictal [facility] [address]-79 150 MG Orally once a day May 20, 2015 1 tablet Geodon [facility] [address]-33 80 MG Orally once a day Jun 17, 2015 2 capsules with food Omeprazole [facility] [address]-74 20 MG Orally Once a day May 13, 2015 1 tablet Trazodone HCl [facility] [address]-36 300 MG Orally Once a day Jun 17, 2015 1 tablet at bedtime Lamictal [facility] [address]-62 150 MG Orally Twice a day Jun 17, 2015 1 tablet Prazosin HCl [facility] [address]-58 1 MG Orally Once a day May 20, 2015 1 capsule at bedtime Vyvanse [facility] [address]-80 50 MG Orally Once a day 1 capsule in the morning Diazepam [facility] [address]-44 5 MG Orally twice a day as needed May 20, 2015 1 tablet Gabapentin [facility] [address]-36 400 MG Orally Three times a day May 31, 2015 1 capsule Prazosin HCl [facility] [address]-44 1 MG Orally Once a day Jun 17, 2015 1 capsule at bedtime Trazodone HCl [facility] [address]-31 300 MG Orally Once a day May 20, 2015 1 tablet at bedtime Keppra [facility] [address]-23 500 MG Orally every 12 hrs May 04, 2015 1 tablet Vistaril [facility] [address]-23 50 MG/ML Intramuscular every 6 hrs 1 ml as needed Vyvanse [facility] [address]-12 10 MG Orally Once a day May 20, 2015 1 capsule at noon Propranolol HCl [facility] [address]-06 10 MG Orally four times a day May 20, 2015 1 tablet Geodon [facility] [address]-57 80 MG Orally once a day May 20, 2015 2 capsules with food Procedures Procedure Coding System Code Date Office Visit, Est Pt., Level 3 CPT-4 43852 Jun 17, 2015 Vital Signs Date/Time: Jun 17, 2015 Cardiac Monitoring Heart Rate 72 bpm Weight 134.0 lbs Height 60 in BMI 26.17 Index Blood Pressure Diastolic 90 mmHg Blood Pressure Systolic 150 mmHg Results No Known Results Summary Purpose eClinicalWorks Submission
--- OUTSIDE RECORDS SUMMARY | 2017-03-26 08:04 | XMS REPORT ---
Author Author JULIANA CABRAL [facility] eClinicalWorks Address Unknown Phone Unavailable Care Team Providers Care Store Operations Manager Name Role Phone JULIANA CABRAL CP [...] not intractable, without status epilepticus G40.209 Active Medications Medication Code System Code Instructions Start Date End Date Status Dosage Vyvanse [facility] [address]-83 10 mg TAKE ONE CAPSULE BY MOUTH ONCE DAILY AT NOON Diazepam [facility] [address]-32 5 mg Orally. twice a day as needed May 20, 2015 1 tablet Vyvanse [facility] [address]-38 50 mg Orally Once a day May 16, 2016 1 capsule in the morning Results No Known Results Summary Purpose eClinicalWorks Submission
--- OUTSIDE RECORDS SUMMARY | 2017-03-26 08:04 | XMS REPORT ---
Author Author JULIANA CABRAL [facility] eClinicalWorks Address Unknown Phone Unavailable Care Team Providers Care Pumper Gauger Apprentice Name Role Phone JULIANA CABRAL CP Unavailable Allergies, Adverse Reactions, Alerts Substance Reaction Event Type Brintellix Info Not Available Drug Allergy Trileptal Info Not Available Drug Allergy Problems Problem Type Condition Code Onset Dates Condition Status Assessment Attention deficit disorder F90.0 Active Assessment Anxiety disorder, unspecified F41.9 Active Problem Posttraumatic stress disorder 309.81 Active Problem Anxiety disorder 300.00 Active Problem Seizure disorder 345.90 Active Problem 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 Assessment Bipolar disorder, now depressed F31.30 Active Problem Bipolar disorder 296.80 Active Problem Excessive drinking alcohol 305.00 Active Medications Medication Code System Code Instructions Start Date End Date Status Dosage Omeprazole [facility] [address]-61 20 MG Orally Once a day May 13, 2015 1 tablet Propranolol HCl [facility] [address]-66 10 MG Orally four times a day May 20, 2015 1 tablet Prazosin HCl [facility] [address]-45 1 MG Orally Once a day Jun 17, 2015 1 capsule at bedtime Diazepam [facility] [address]-81 5 MG Orally twice a day as needed May 20, 2015 1 tablet Vistaril [facility] [address]-89 50 MG/ML Intramuscular every 6 hrs 1 ml as needed Vyvanse [facility] [address]-18 10 MG Orally Once a day. Dr Bergeron to sign for Juan Ramon May 20, 2015 1 capsule at noon Topamax [facility] [address]-59 50 MG Orally Once a day 1 tablet Vyvanse [facility] [address]-79 50 MG Orally Once a day. Dr Bergeron to sign for Juan Ramon 1 capsule in the morning Lamictal [facility] [address]-17 150 MG Orally Twice a day Jun 17, 2015 1 tablet Geodon [facility] [address]-44 80 MG Orally once a day Jun 17, 2015 2 capsules with food Gabapentin [facility] [address]-58 400 MG Orally Three times a day May 31, 2015 1 capsule Lexapro [facility] [address]-34 20 MG Orally Once a day Jul 22, 2015 1 tablet Trazodone HCl [facility] [address]-66 300 MG Orally Once a day May 20, 2015 1 tablet at bedtime Keppra [facility] [address]-53 500 MG Orally every 12 hrs May 04, 2015 1 tablet Procedures Procedure Coding System Code Date Office Visit, Est Pt., Level 3 CPT-4 38519 Jul 22, 2015 Vital Signs Date/Time: Jul 22, 2015 Cardiac Monitoring Heart Rate 84 bpm Weight 135.3 lbs Height 60 in BMI 26.42 Index Blood Pressure Diastolic 102 mmHg Blood Pressure Systolic 125 mmHg Results No Known Results Summary Purpose eClinicalWorks Submission
--- OUTSIDE RECORDS SUMMARY | 2017-03-26 08:04 | XMS REPORT ---
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 Alexis to sign for Juan Ramon May 20, 2015 1 capsule at noon Vyvanse [facility] [address]-18 50 MG Orally Once a day. Alexis to sign for Juan Ramon 1 capsule in the morning Results No Known Results Summary Purpose eClinicalWorks Submission
--- OUTSIDE RECORDS SUMMARY | 2017-03-26 08:04 | XMS REPORT ---
Author Author JULIANA CABRAL Organization eClinicalWorks Address Unknown Phone Unavailable Care Team Providers Care Extractive Metallurgist Name Role Phone JULIANA CABRAL CP Unavailable [...]
--- OUTSIDE RECORDS SUMMARY | 2017-03-26 08:04 | XMS REPORT ---
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
--- OUTSIDE RECORDS SUMMARY | 2017-03-26 08:05 | XMS REPORT ---
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
--- OUTSIDE RECORDS SUMMARY | 2017-03-26 08:05 | XMS REPORT ---
Author Author JULIANA CABRAL Organization eClinicalWorks Address Unknown Phone Unavailable Care Team Providers Care Senior Technical Editor Name Role Phone JULIANA CABRAL CP Unavailable [...] PTSD (post-traumatic stress disorder) F43.10 Active Medications Medication Code System Code Instructions Start Date End Date Status Dosage Propranolol HCl [facility] [address]-35 10 MG Orally four times a day May 20, 2015 1 tablet Results No Known Results Summary Purpose eClinicalWorks Submission
--- OUTSIDE RECORDS SUMMARY | 2017-03-26 08:05 | XMS REPORT ---
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 Problem Posttraumatic stress disorder 309.81 Active Problem Anxiety disorder 300.00 Active Problem Seizure disorder 345.90 Active Problem Excessive drinking alcohol 305.00 Active Assessment Bipolar I disorder, most recent episode (or current) depressed, moderate 296.52 Active Problem Bipolar disorder 296.80 Active Problem ADD (attention deficit disorder) 314.00 Active Medications Medication Code System Code Instructions Start Date End Date Status Dosage Propranolol HCl [facility] [address]-97 10 MG Orally four times a day May 20, 2015 1 tablet Lamictal [facility] [address]-14 150 MG Orally once a day May 20, 2015 1 tablet Vyvanse [facility] [address]-47 10 MG Orally Once a day May 20, 2015 1 capsule at noon Topamax [facility] [address]-38 50 MG Orally Once a day 1 tablet Prazosin HCl [facility] [address]-49 1 MG Orally Once a day May 20, 2015 1 capsule at bedtime Omeprazole [facility] [address]-38 20 MG Orally Once a day May 13, 2015 1 tablet Keppra [facility] [address]-95 500 MG Orally every 12 hrs May 04, 2015 1 tablet Trazodone HCl [facility] [address]-88 300 MG Orally Once a day May 20, 2015 1 tablet at bedtime Vyvanse [facility] [address]-01 50 MG Orally Once a day 1 capsule in the morning Brintellix [facility] [address]-79 10 MG Orally Once a day May 20, 2015 1 tablet Diazepam [facility] [address]-79 5 MG Orally twice a day as needed May 20, [address] [address]-64 80 MG Orally once a day May 20, 2015 2 capsules with food Procedures Procedure Coding System Code Date Psych diagnostic evaluation w/medical services, new patient CPT-4 19240 May 20, 2015 Vital Signs Date/Time: May 20, 2015 Temperature 98.0 F Weight 134.5 lbs Height 60 in BMI 26.26 Index Blood Pressure Diastolic 75 mmHg Blood Pressure Systolic 120 mmHg Cardiac Monitoring Heart Rate 92 bpm Results No Known Results Summary Purpose eClinicalWorks Submission
--- OUTSIDE RECORDS SUMMARY | 2017-03-26 08:05 | XMS REPORT ---
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 twice a day as needed May 20, 2015 1 tablet Results No Known Results Summary Purpose eClinicalWorks Submission
--- OUTSIDE RECORDS SUMMARY | 2017-03-26 08:05 | XMS REPORT ---
Author Author JACEK VILLARREAL Organization [facility] Address [address] [place] [address] Care Team Providers Care Remote Sensing Surveyor Name Role Phone JACEK VILLARREAL Unavailable PROBLEMS Type Condition ICD9-CM Code STH89-QU Code Onset Dates Condition Status SNOMED Code Assessment Tension headache G44.209 14 May, 2016 Active 177108688 Problem Bipolar disorder F31.9 Active 43568626 Problem Excessive drinking alcohol F10.10 Active 596455372 Assessment Hives L50.9 May, Active 039075039 Assessment Nausea R11.0 May, Active 408015147 Problem Migraine with aura and without status migrainosus, not intractable G43.109 Active 4201130 Problem Tension headache G44.209 Active 683684540 Problem PTSD (post-traumatic stress disorder) F43.10 Active 55551610 Problem Anxiety disorder F41.9 Active 228202433 Problem Partial symptomatic epilepsy with complex partial seizures, not intractable, without status epilepticus G40.209 Active 593397771 Problem 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 196173914 ALLERGIES Substance Reaction Event Type Date Status Brintellix Unknown Drug Allergy May, Active Trileptal Unknown Drug Allergy May, Active SOCIAL HISTORY No smoking Hx information available PLAN OF CARE VITAL SIGNS Height 60 in 2016-05-30 Weight 153.2 lbs 2016-05-30 Heart Rate 60 bpm 2016-05-30 Respiratory Rate 16 2016-05-30 BMI 29.92 kg/m2 2016-05-30 Blood pressure systolic 120 mmHg 2016-05-30 Blood pressure diastolic 72 mmHg 2016-05-30 MEDICATIONS Medication Instructions Dosage Frequency Start Date End Date Duration Status Ondansetron HCl 8 MG Orally Every 8 hours as needed with headache 1 tablet Apr, 30 days Active Lexapro 20 MG Orally Once a day 1 tablet 24h Apr, 90 days Active Vyvanse 10 mg TAKE ONE CAPSULE BY MOUTH ONCE DAILY AT NOON Active Diazepam 5 mg Orally. twice a day as needed 1 tablet May, Active Cetirizine HCl 10 MG Orally Once a day 1 tablet as needed 24h Active Keppra 500 MG Orally every 12 hrs 1 tablet 12h Apr, 30 days Active Propranolol HCl 10 MG Orally four times a day 1 tablet 6h May, 90 days Active Hibiclens 4 % Active Amitriptyline HCl 10 mg Orally Once a day at bedtime, increase to 2 tabs after 1 week, 3 tabs after 2 weeks, 4 tabs after 3 weeks, 5 tabs after 4 wk 1 tablet Apr, Active Omeprazole 40 mg Orally Once a day 1 capsule 24h Apr, 30 day(s ) Active Trazodone HCl 150 MG Orally Once a day 1 tablet at bedtime as needed 24h Apr, 90 days Active Vistaril 50 mg Orally every 6 hrs prn itching/hives 1 capsule as needed 90 days Active Vyvanse 50 MG Orally Once a day 1 capsule in the morning 24h Apr, 28 days Active RESULTS No Results PROCEDURES Procedure Date Ordered Related Diagnosis Body Site Office Visit, Est Pt., Level 3 May 30, 2016 IMMUNIZATIONS No Known Immunizations
--- OUTSIDE RECORDS SUMMARY | 2017-03-26 08:05 | XMS REPORT ---
Author Author JULIANA CABRAL [facility] eClinicalWorks Address Unknown Phone Unavailable Care Team Providers Care Superintendent Nonselling Name Role Phone JULIANA CABRAL CP Unavailable Allergies, Adverse Reactions, Alerts Substance Reaction Event Type Brintellix Info Not Available Drug Allergy Trileptal Info Not Available Drug Allergy Problems Problem Type Condition Code Onset Dates Condition Status Assessment Anxiety disorder, unspecified F41.9 Active Assessment Attention deficit hyperactivity disorder F90.9 Active Assessment Bipolar disorder (manic depression) F31.9 Active Medications Medication Code System Code Instructions Start Date End Date Status Dosage Propranolol HCl [facility] [address]-25 10 MG Orally four times a day May 20, 2015 1 tablet Vyvanse [facility] [address]-48 50 MG Orally Once a day. Alexis to sign for Juan Ramon 1 capsule in the morning Omeprazole [facility] [address]-70 20 MG Orally Once a day May 13, 2015 1 tablet Diazepam [facility] [address]-61 5 MG Orally twice a day as needed May 20, 2015 1 tablet Keppra [facility] [address]-31 500 MG Orally every 12 hrs May 04, 2015 1 tablet Vyvanse [facility] [address]-20 10 MG Orally Once a day. Alexis to sign for Juan Ramon May 20, 2015 1 capsule at noon Lexapro [facility] [address]-19 20 MG Orally Once a day Jul 22, 2015 1 tablet Gabapentin [facility] [address]-22 400 MG Orally Three times a day May 31, 2015 1 capsule Vistaril [facility] [address]-26 25 MG Orally every 6 hrs Aug 22, 2015 1 capsule as needed Prazosin HCl [facility] [address]-46 1 MG Orally Once a day Jun 17, 2015 1 capsule at bedtime Lamictal [facility] [address]-03 150 MG Orally Twice a day Jun 17, 2015 1 tablet Vistaril [facility] [address]-65 50 MG/ML Intramuscular every 6 hrs 1 ml as needed Amoxicillin [facility] [address]-90 875 MG Orally Twice a day 1 tablet Topamax [facility] [address]-50 50 MG Orally Once a day 1 tablet Trazodone HCl [facility] [address]-64 300 MG Orally Once a day May 20, 2015 1 tablet at bedtime Risperdal [facility] [address]-83 2 MG Orally twice a day Aug 22, 2015 1 tablet Procedures Procedure Coding System Code Date Office Visit, Est Pt., Level 3 CPT-4 62439 Aug 22, 2015 Vital Signs Date/Time: Aug 22, 2015 Cardiac Monitoring Heart Rate 96 bpm Weight 143.8 lbs Height 60 in BMI 28.08 Index Blood Pressure Diastolic 104 mmHg Blood Pressure Systolic 160 mmHg Results No Known Results Summary Purpose eClinicalWorks Submission
--- OUTSIDE RECORDS SUMMARY | 2017-03-26 08:05 | XMS REPORT ---
Author Author JULIANA CABRAL [facility] eClinicalWorks Address Unknown Phone Unavailable Care Team Providers Care Watch Commander Name Role Phone JULIANA CABRAL CP Unavailable [...] Start Date End Date Status Dosage Vyvanse [facility] [address]-29 50 MG Orally Once a day. Dr Bergeron to sign for Juan Ramon 1 capsule in the morning Vyvanse [facility] [address]-90 10 MG Orally Once a day. Dr Bergeron to sign for Juan Ramon May 20, 2015 1 capsule at noon Diazepam [facility] [address]-42 5 MG Orally twice a day as needed May 20, 2015 1 tablet Results No Known Results Summary Purpose eClinicalWorks Submission
--- OUTSIDE RECORDS SUMMARY | 2017-03-26 08:06 | XMS REPORT ---
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 Problem PTSD (post-traumatic stress disorder) F43.10 Active Problem Partial symptomatic epilepsy with complex partial seizures, not intractable, without status epilepticus G40.209 Active Problem Excessive drinking alcohol F10.10 Active Assessment Herpetic dermatitis B00.89 Active Problem Anxiety disorder F41.9 Active Problem Bipolar disorder F31.9 Active Medications Medication Code System Code Instructions Start Date End Date Status Dosage Lexapro [facility] [address]-33 20 MG Orally Once a day Jul 22, 2015 1 tablet Doxycycline Hyclate [facility] [address]-94 100 MG Orally every 12 hrs Aug 23, 2015 Sep 02, 2015 1 tablet Risperdal [facility] [address]-30 2 MG Orally twice a day Aug 22, 2015 1 tablet Valacyclovir HCl [facility] [address]-53 1 GM Orally every 24 hrs Aug 23, 2015 Sep 02, 2015 1 tablet Trazodone HCl [facility] [address]-95 300 MG Orally Once a day May 20, 2015 1 tablet at bedtime Propranolol HCl [facility] [address]-94 10 MG Orally four times a day May 20, 2015 1 tablet Gabapentin [facility] [address]-46 400 MG Orally Three times a day May 31, 2015 1 capsule Diazepam [facility] [address]-64 5 MG Orally twice a day as needed May 20, 2015 1 tablet Vyvanse [facility] [address]-57 10 MG Orally Once a day. Alexis to sign for Juan Ramon May 20, 2015 1 capsule at noon Lamictal [facility] [address]-12 150 MG Orally Twice a day Jun 17, 2015 1 tablet Prazosin HCl [facility] [address]-21 1 MG Orally Once a day Jun 17, 2015 1 capsule at bedtime Vistaril [facility] [address]-72 25 MG Orally every 6 hrs Aug 22, 2015 1 capsule as needed Omeprazole [facility] [address]-00 20 MG Orally Once a day May 13, 2015 1 tablet Vyvanse [facility] [address]-75 50 MG Orally Once a day. Alexis to sign for Juan Ramon 1 capsule in the morning Topamax [facility] [address]-75 50 MG Orally Once a day 1 tablet Keppra [facility] [address]-38 500 MG Orally every 12 hrs May 04, 2015 1 tablet Procedures Procedure Coding System Code Date Office Visit, Est Pt., Level 3 CPT-4 17465 Aug 23, 2015 Vital Signs Date/Time: Aug 23, 2015 Temperature 97.0 F Weight 142.2 lbs Height 60 in BMI 27.77 Index Blood Pressure Diastolic 90 mmHg Blood Pressure Systolic 138 mmHg Cardiac Monitoring Heart Rate 84 bpm Results No Known Results Summary Purpose eClinicalWorks Submission
--- OUTSIDE RECORDS SUMMARY | 2017-03-26 08:06 | XMS REPORT ---
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
--- OUTSIDE RECORDS SUMMARY | 2017-03-26 08:06 | XMS REPORT ---
Author Author JULIANA CABRAL Organization [employer] Address Unknown Phone Unavailable Care Team Providers Care Cheese Factory Worker Name Role Phone JULIANA CABRAL CP Unavailable Allergies No Known Allergies Problems Problem Type Condition Code Onset Dates Condition Status Problem Excessive drinking alcohol F10.10 Active Assessment Tension headache G44.209 Active Problem Tension headache G44.209 Active Problem [...] Instructions Start Date End Date Status Dosage Amitriptyline HCl [facility] [address]-28 10 mg Orally Once a day at bedtime, increase to 2 tabs after 1 week, 3 tabs after 2 weeks, 4 tabs after 3 weeks, 5 tabs after 4 wk May 11, 2016 1 tablet Results No Known Results Summary Purpose eClinicalWorks Submission
--- OUTSIDE RECORDS SUMMARY | 2017-03-26 08:06 | XMS REPORT ---
Author Author JACEK VILLARREAL [employer] Address Unknown Phone Unavailable Care Team Providers Care Grassland Conservationist Name Role Phone JACEK VILLARREAL CP Unavailable Allergies No Known Allergies Problems [...] intractable, without status epilepticus G40.209 Active Medications No Known Medications Results No Known Results Summary Purpose [employer] Submission
--- OUTSIDE RECORDS SUMMARY | 2017-03-26 08:06 | XMS REPORT ---
Author Author JULIANA CABRAL Organization [employer] Address Unknown Phone Unavailable Care Team Providers Care Structural Shop Helper Name Role Phone JULIANA CABRAL CP Unavailable [...] Instructions Start Date End Date Status Dosage Diazepam [facility] [address]-35 5 MG Orally. twice a day as needed May 20, 2015 1 tablet Results No Known Results Summary Purpose [employer]ClinicalWorks Submission
--- OUTSIDE RECORDS SUMMARY | 2017-03-26 08:06 | XMS REPORT ---
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 534929781 Problem PTSD (post-traumatic stress disorder) F43.10 Active 93992235 Problem Excessive drinking alcohol F10.10 Active 428303343 Problem Bipolar disorder F31.9 Active 26440262 Problem Bipolar disorder (manic depression) F31.9 Active 42425503 Problem Attention deficit hyperactivity disorder F90.9 Active 112181725 Problem Tension headache G44.209 Active 160296208 Problem Partial symptomatic epilepsy with complex partial seizures, not intractable, without status epilepticus G40.209 Active 226860383 Problem Bipolar disorder with moderate depression F31.32 Active 657218334 Problem Migraine with aura and without status migrainosus, not intractable G43.109 Active 8716076 ALLERGIES Unknown Allergies SOCIAL HISTORY No smoking Hx information available PLAN OF CARE VITAL SIGNS MEDICATIONS Unknown Medications RESULTS No Results PROCEDURES No Known procedures IMMUNIZATIONS No Known Immunizations
--- OUTSIDE RECORDS SUMMARY | 2017-03-26 08:06 | XMS REPORT ---
Author Author JACEK VILLARREAL [employer] Address Unknown Phone Unavailable Care Team Providers Care Retail Route Supervisor Name Role Phone JACEK VILLARREAL Unavailable Allergies No Known Allergies Problems Problem [...] Instructions Start Date End Date Status Dosage Cetirizine HCl [facility] [address]-71 10 mg Orally Once a day 1 tablet as needed Amitriptyline HCl [facility] [address]-61 10 mg Orally Once a day at bedtime May 11, 2016 take 3 to 5 tablets Results No Known Results Summary Purpose [employer]ClinicalWorks Submission
--- OUTSIDE RECORDS SUMMARY | 2017-03-26 08:06 | XMS REPORT ---
Author Author JACEK VILLARREAL [employer] Address Unknown Phone Unavailable Care Team Providers Care Housing Management Officer Name Role Phone JACEK VILLARREAL Unavailable Allergies [...] Instructions Start Date End Date Status Dosage Ondansetron HCl [facility] [address]-02 8 MG Orally Every 8 hours as needed with headache Apr 24, 2016 1 tablet Pantoprazole Sodium [facility] [address]-09 40 mg Orally Once a day Jul 12, 2016 1 tablet Results No Known Results Summary Purpose [employer]ClinicalWorks Submission
--- OUTSIDE RECORDS SUMMARY | 2017-03-26 08:06 | XMS REPORT ---
Author Author JACEK VILLARREAL [employer] Address Unknown Phone Unavailable Care Team Providers Care Industrial Maintenance Manager Name Role Phone JACEK VILLARREAL CP Unavailable Allergies, Adverse Reactions, Alerts Substance Reaction Event Type Trileptal Info Not Available Drug Allergy Problems Problem Type Condition ICD-9 Code Onset Dates Condition Status Assessment Anxiety disorder 300.00 Active Problem Posttraumatic stress disorder 309.81 Active Problem Anxiety disorder 300.00 Active Problem Seizure disorder 345.90 Active Problem Excessive drinking alcohol 305.00 Active Assessment Seizure disorder 345.90 Active Problem Bipolar disorder 296.80 Active Problem ADD (attention deficit disorder) 314.00 Active Medications Medication Code System Code Instructions Start Date End Date Status Dosage Brintellix [facility] [address]-75 10 MG Orally Once a day May 20, 2015 1 tablet Propranolol HCl [facility] [address]-82 10 MG Orally four times a day May 20, 2015 1 tablet Keppra [facility] [address]-46 500 MG Orally every 12 hrs May 04, 2015 1 tablet Trazodone HCl [facility] [address]-39 300 MG Orally Once a day May 20, 2015 1 tablet at bedtime Lamictal [facility] [address]-38 150 MG Orally once a day May 20, 2015 1 tablet Omeprazole [facility] [address]-14 20 MG Orally Once a day May 13, 2015 1 tablet Gabapentin [facility] [address]-31 400 MG Orally Three times a day May 31, 2015 1 capsule Diazepam [facility] [address]-39 5 MG Orally twice a day as needed May 20, 2015 1 tablet Vyvanse [facility] [address]-19 10 MG Orally Once a day May 20, 2015 1 capsule at noon Vyvanse [facility] [address]-08 50 MG Orally Once a day 1 capsule in the morning Prazosin HCl [facility] [address]-71 1 MG Orally Once a day May 20, 2015 1 capsule at bedtime Topamax [facility] [address]-37 50 MG Orally Once a day 1 [address] Reny [facility] [address]-05 80 MG Orally once a day May 20, 2015 2 capsules with food Procedures Procedure Coding System Code Date Office Visit, Bart Pt., Level 3 CPT-4 22068 May 31, 2015 Vital Signs Date/Time: May 31, 2015 Temperature 98.3 F Weight 136.2 lbs Height 60 in BMI 26.60 Index Blood Pressure Diastolic 78 mmHg Blood Pressure Systolic 136 mmHg Cardiac Monitoring Heart Rate 90 bpm Results No Known Results Summary Purpose eClinicalWorks Submission
--- OUTSIDE RECORDS SUMMARY | 2017-03-26 08:06 | XMS REPORT ---
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 Problem Migraine with aura and without status migrainosus, not intractable G43.109 Active Problem Bipolar disorder F31.9 Active Problem Excessive drinking alcohol F10.10 Active Problem PTSD (post-traumatic stress disorder) F43.10 Active Problem Anxiety disorder F41.9 Active Medications Medication Code System Code Instructions Start Date End Date Status Dosage Vyvanse [facility] [address]-41 10 mg TAKE ONE CAPSULE BY MOUTH ONCE DAILY AT NOON Lexapro [facility] [address]-94 20 MG Orally Once a day May 16, 2016 1 tablet Amitriptyline HCl [facility] [address]-05 10 mg Orally Once a day at bedtime, increase to 2 tabs after 1 week, 3 tabs after 2 weeks, 4 tabs after 3 weeks, 5 tabs after 4 wk May 11, 2016 1 tablet Omeprazole [facility] [address]-91 40 mg Orally Once a day Apr 24, 2016 1 capsule Propranolol HCl [facility] [address]-89 10 MG Orally four times a day May 20, 2015 1 tablet Vyvanse [facility] [address]-53 50 MG Orally Once a day May 16, 2016 1 capsule in the morning Cetirizine HCl [facility] [address]-87 10 MG Orally Once a day 1 tablet as needed Keppra [facility] [address]-68 500 MG Orally every 12 hrs May 04, 2015 1 tablet Diazepam [facility] [address]-96 5 mg Orally. twice a day as needed May 20, 2015 1 tablet Ondansetron HCl [facility] [address]-47 8 MG Orally Every 8 hours as needed with headache Apr 24, 2016 1 tablet Trazodone HCl [facility] [address]-64 150 MG Orally Once a day May 16, 2016 1 tablet at bedtime as needed Vistaril [facility] [address]-22 50 mg Orally every 6 hrs prn itching/hives 1 capsule as needed Procedures Procedure Coding System Code Date Office Visit, Est Pt., Level 3 CPT-4 35262 May 16, 2016 Vital Signs Date/Time: May 16, 2016 Cardiac Monitoring Heart Rate 76 bpm Weight 149.5 lbs Height 60 in BMI 29.19 Index Blood Pressure Diastolic 64 mmHg Blood Pressure Systolic 118 mmHg Results No Known Results Summary Purpose eClinicalWorks Submission
--- OUTSIDE RECORDS SUMMARY | 2017-03-26 08:07 | XMS REPORT ---
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 twice a day as needed 1 tablet May, Active Vyvanse 10 mg TAKE ONE CAPSULE BY MOUTH ONCE DAILY AT NOON Active RESULTS No Results PROCEDURES No Known procedures IMMUNIZATIONS No Known Immunizations
--- OUTSIDE RECORDS SUMMARY | 2017-03-26 08:07 | XMS REPORT ---
Author Author JULIANA CABRAL Organization [employer]ClinicalWorks Address Unknown Phone Unavailable Care Team Providers Care Wellness Ambassador Name Role Phone JULIANA CABRAL CP Unavailable [...] Start Date End Date Status Dosage Vyvanse [facility] [address]-04 10 MG Orally Once a day. Martha to sign for Juan Ramon May 20, 2015 1 capsule at noon Results No Known Results Summary Purpose [employer]ClinicalWorks Submission
--- OUTSIDE RECORDS SUMMARY | 2017-03-26 08:07 | XMS REPORT ---
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
--- OUTSIDE RECORDS SUMMARY | 2017-03-26 08:07 | XMS REPORT ---
Author Author JACEK VILLARREAL [facility] eClinicalWorks Address Unknown Phone Unavailable Care Team Providers Care Pyrotechnician Name Role Phone JACEK VILLARREAL Unavailable Allergies [...] Instructions Start Date End Date Status Dosage Doxycycline [facility] [address]-68 100 Orally Once a day 1 capsule on an empty stomach in the morning Results No Known Results Summary Purpose eClinicalWorks Submission
--- OUTSIDE RECORDS SUMMARY | 2017-03-26 08:07 | XMS REPORT ---
Author Author JULIANA CABRAL Organization [employer]ClinicalWorks Address Unknown Phone Unavailable Care Team Providers Care Radiator Core Tester Name Role Phone JULIANA CABRAL CP Unavailable [...] End Date Status Dosage Vyvanse [facility] [address]-93 50 MG Orally Once a day. Alexis to sign for Juan Ramon 1 capsule in the morning Results No Known Results Summary Purpose eClinicalWorks Submission
--- OUTSIDE RECORDS SUMMARY | 2017-03-26 08:07 | XMS REPORT ---
Author Author JULIANA CABRAL Organization [employer]ClinicalWorks Address Unknown Phone Unavailable Care Team Providers Care Campus Recruiting Intern Name Role Phone JULIANA CABRAL CP Unavailable [...] Start Date End Date Status Dosage Diazepam [facility] [address]-10 5 MG Orally twice a day as needed May 20, 2015 1 tablet Results No Known Results Summary Purpose eClinicalWorks Submission
--- OUTSIDE RECORDS SUMMARY | 2017-03-26 08:07 | XMS REPORT ---
Author Author JULIANA CABRAL Organization [employer] Address Unknown Phone Unavailable Care Team Providers Care Registered Sales Assistant Name Role Phone JULIANA CABRAL [...] Date End Date Status Dosage Trazodone HCl [facility] [address]-48 150 MG Orally Once a day May 20, 2015 2-4 tablet at bedtime Results No Known Results Summary Purpose eClinicalWorks Submission
--- OUTSIDE RECORDS SUMMARY | 2017-03-26 08:07 | XMS REPORT ---
Author Author JULIANA CABRAL [facility] eClinicalWorks Address Unknown Phone Unavailable Care Team Providers Care Clinical Pharmacy Coordinator Name Role Phone JULIANA CABRAL CP Unavailable [...] Start Date End Date Status Dosage Vyvanse [facility] [address]-49 10 MG Orally Once a day. Martha to sign for Juan Ramon May 20, 2015 1 capsule at noon Diazepam [facility] [address]-15 5 MG Orally twice a day as needed May 20, 2015 1 tablet Results No Known Results Summary Purpose eClinicalWorks Submission
--- OUTSIDE RECORDS SUMMARY | 2017-03-26 08:07 | XMS REPORT ---
Author Author JACEK VILLARREAL [facility] eClinicalWorks Address Unknown Phone Unavailable Care Team Providers Care Lineman Service Or Work Dispatcher Name Role Phone JACEK VILLARREAL Unavailable Allergies [...]
--- OUTSIDE RECORDS SUMMARY | 2017-03-26 08:07 | XMS REPORT ---
Author Author JULIANA CABRAL Organization [employer]ClinicalWorks Address Unknown Phone Unavailable Care Team Providers Care Manager Cath Lab Name Role Phone JULIANA CABRAL CP Unavailable [...]
--- OUTSIDE RECORDS SUMMARY | 2017-03-26 08:07 | XMS REPORT ---
Author Author JULIANA CABRAL Organization [employer]ClinicalWorks Address Unknown Phone Unavailable Care Team Providers Care Box Blank Machine Operator Name Role Phone JULIANA CABRAL CP Unavailable Allergies No Known Allergies Problems Problem Type Condition ICD-9 Code Onset Dates Condition Status Problem Posttraumatic stress disorder 309.81 Active Problem Anxiety disorder 300.00 Active Problem Seizure disorder 345.90 Active Problem Excessive drinking alcohol 305.00 Active Problem Bipolar disorder 296.80 Active Problem ADD (attention deficit disorder) 314.00 Active Medications Medication Code System Code Instructions Start Date End Date Status Dosage Brintellix [facility] [address]-01 10 MG Orally Once a day May 20, 2015 1 tablet Lamictal [facility] [address]-10 150 MG Orally once a day May 20, 2015 1 tablet Topamax [facility] [address]-75 50 MG Orally Once a day 1 tablet Propranolol HCl [facility] [address]-87 10 MG Orally four times a day May 20, 2015 1 tablet Geodon [facility] [address]-20 80 MG Orally once a day May 20, 2015 2 capsules with food Prazosin HCl [facility] [address]-06 1 MG Orally Once a day May 20, 2015 1 capsule at bedtime Results No Known Results Summary Purpose eClinicalWorks Submission
--- OUTSIDE RECORDS SUMMARY | 2017-03-26 08:07 | XMS REPORT ---
Author Author JULIANA CABRAL Organization eClinicalWorks Address Unknown Phone Unavailable Care Team Providers Care Labourers Name Role Phone JULIANA CABRAL CP Unavailable [...] Start Date End Date Status Dosage Vyvanse [facility] [address]-22 50 MG Orally Once a day Jul 23, 2016 1 capsule in the morning Diazepam [facility] [address]-55 5 MG Orally as needed Twice a day May 20, 2015 1 tablet Vyvanse [facility] [address]-84 10 MG Orally at noon Once a day Jul 23, 2016 1 capsule Results No Known Results Summary Purpose eClinicalWorks Submission
--- OUTSIDE RECORDS SUMMARY | 2017-03-26 08:07 | XMS REPORT ---
Author Author JULIANA CABRAL [facility] eClinicalWorks Address Unknown Phone Unavailable Care Team Providers Care Stoner Out Name Role Phone JULIANA CABRAL CP Unavailable [...] Start Date End Date Status Dosage Vyvanse [facility] [address]-22 50 MG Orally Once a day. Dr Bergeron to sign for Juan Ramon 1 capsule in the morning Results No Known Results Summary Purpose eClinicalWorks Submission
--- OUTSIDE RECORDS SUMMARY | 2017-03-26 08:07 | XMS REPORT ---
Author Author JACEK VILLARREAL [facility] eClinicalWorks Address Unknown Phone Unavailable Care Team Providers Care Chamber Walker Name Role Phone JACEK VILLARREAL Unavailable Allergies [...]
--- OUTSIDE RECORDS SUMMARY | 2017-03-26 08:07 | XMS REPORT ---
Author Author JACEK VILLARREAL [employer]ClinicalWorks Address Unknown Phone Unavailable Care Team Providers Care Nurse Case Manager Name Role Phone JACEK VILLARREAL Unavailable Allergies [...]
--- OUTSIDE RECORDS SUMMARY | 2017-03-26 08:07 | XMS REPORT ---
Author Author JACEK VILLARREAL [facility] eClinicalWorks Address Unknown Phone Unavailable Care Team Providers Care Manufacturing Technologist Name Role Phone JACEK VILLARREAL Unavailable Allergies [...] Start Date End Date Status Dosage Doxycycline [facility] [address]-72 100 Orally Once a day February 09, 2016 1 capsule on an empty stomach in the morning Results No Known Results Summary Purpose eClinicalWorks Submission
--- OUTSIDE RECORDS SUMMARY | 2017-03-26 08:07 | XMS REPORT ---
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 [address]-64 10 mg Orally Once a day. May 20, 2015 1 capsule at noon Propranolol HCl [facility] [address]-39 10 MG Orally four times a day May 20, 2015 1 tablet Lexapro [facility] [address]-81 20 MG Orally Once a day Jul 22, 2015 1 tablet Doxycycline [facility] [address]-54 100 Orally twice a day 1 capsule on an empty stomach in the morning Diazepam [facility] [address]-66 5 MG Orally. twice a day as needed May 20, 2015 1 tablet Vistaril [facility] [address]-11 50 mg Orally every 6 hrs prn itching/hives 1 capsule as needed Keppra [facility] [address]-82 500 MG Orally every 12 hrs May 04, 2015 1 tablet Septra ND 0 160 mg 2 times a day 1 tablet Bactroban [facility] [address]-76 2 % Externally Three times a day 1 application to affected area Vyvanse [facility] [address]-09 50 mg Orally Once a day. 1 capsule in the morning Prazosin HCl [facility] [address]-34 2 MG Orally Once a day Jun 17, 2015 1 capsule at bedtime Cetirizine HCl [facility] [address]-68 10 MG Orally Once a day 1 tablet as needed Trazodone HCl [facility] [address]-12 300 MG Orally Once a day May 20, 2015 1-2 tablet at bedtime Risperdal [facility] [address]-61 2 MG Orally twice a day Aug 22, 2015 1 tablet Bactrim DS [facility] [address]-91 800-160 MG Orally Once a day 1 tablet Procedures Procedure Coding System Code Date BLOOD FOLIC ACID SERUM CPT-4 93366 January 05, 2016 ASSAY OF VITAMIN D CPT-4 29112 January 05, 2016 VITAMIN B-12 CPT-4 61853 January 05, 2016 VENIPUNCT, ROUTINE* CPT-4 20495 January 05, 2016 Office Visit, Est Pt., Level 3 CPT-4 66375 January 05, 2016 Vital Signs Date/Time: January 05, 2016 Temperature 97.9 F Weight 146.0 lbs Height 60 in BMI 28.51 Index Blood Pressure Diastolic 84 mmHg Blood Pressure Systolic 128 mmHg Cardiac Monitoring Heart Rate 90 bpm Results Name Result Date Reference Range Unit Abnormality Flag ROUTINE VENIPUNCTURE Summary Purpose eClinicalWorks Submission
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
--- OUTSIDE RECORDS SUMMARY | 2017-03-26 08:08 | XMS REPORT ---
Author Author JACEK VILLARREAL [employer] Address Unknown Phone Unavailable Care Team Providers Care Marketing Services Manager Name Role Phone JACEK VILLARREAL CP Unavailable Allergies, Adverse Reactions, Alerts Substance Reaction Event Type Brintellix Info Not Available Drug Allergy Trileptal Info Not Available Drug Allergy Problems Problem Type Condition Code Onset Dates Condition Status Assessment Nausea R11.0 Active Problem Excessive drinking alcohol F10.10 Active Assessment Epigastric pain R10.13 Active Assessment Migraine with aura and without status migrainosus, not intractable G43.109 Active Problem Tension headache G44.209 Active Problem [...] Instructions Start Date End Date Status Dosage Vistaril [facility] [address]-91 50 mg Orally every 6 hrs prn itching/hives 1 capsule as needed Diazepam [facility] [address]-27 5 mg Orally. twice a day as needed May 20, 2015 1 tablet Ondansetron HCl [facility] [address]-73 8 MG Orally Every 8 hours as needed with headache Apr 24, 2016 1 tablet Cetirizine HCl [facility] [address]-91 10 MG Orally Once a day 1 tablet as needed Prazosin HCl [facility] [address]-64 1 MG Orally Once a day Jun 17, 2015 1 capsule at bedtime Keppra [facility] [address]-42 500 MG Orally every 12 hrs May 04, 2015 1 tablet Imitrex [facility] [address]-66 25 MG Orally as directed Apr 24, 2016 1 tablet as needed at onset of headache, can repeat x1 after 2 hours if needed. No more than 200 mg/24 hours Bactrim DS NDC [address]-68 800-160 MG Orally Twice a day 1 tablet Propranolol HCl [facility] [address]-28 10 MG Orally four times a day May 20, 2015 1 tablet Trazodone HCl [facility] [address]-67 300 MG Orally Once a day May 20, 2015 1-2 tablet at bedtime Omeprazole [facility] [address]-34 40 mg Orally Once a day Apr 24, 2016 1 capsule Vyvanse [facility] [address]-84 10 mg TAKE ONE CAPSULE BY MOUTH ONCE DAILY AT NOON Procedures Procedure Coding System Code Date Office Visit, Est Pt., Level 3 CPT-4 94694 Apr 24, 2016 Vital Signs Date/Time: Apr 24, 2016 Cardiac Monitoring Heart Rate 88 bpm Weight 151.1 lbs Height 60 in BMI 29.51 Index Blood Pressure Diastolic 85 mmHg Blood Pressure Systolic 126 mmHg Results No Known Results Summary Purpose eClinicalWorks Submission
--- OUTSIDE RECORDS SUMMARY | 2017-03-26 08:08 | XMS REPORT ---
Author Author JACEK VILLARREAL [employer] Address Unknown Phone Unavailable Care Team Providers Care Container Coordinator Name Role Phone JACEK VILLARREAL Unavailable Allergies [...]
== END 2017-03-22 18:06 | disposition home or self-care (01) ==
LOC: EDUNIT# 15:32 → ER 15:36
DX: F10.129 Alcohol abuse with intoxication, unspecified (principal); F43.10 Post-traumatic stress disorder, unspecified; F31.9 Bipolar disorder, unspecified; G40.909 Epilepsy, unspecified, not intractable, without status epilepticus; G43.909 Migraine, unspecified, not intractable, without status migrainosus; F17.210 Nicotine dependence, cigarettes, uncomplicated; Z91.5 Personal history of self-harm; Z90.711 Acquired absence of uterus with remaining cervical stump; Z90.49 Acquired absence of other specified parts of digestive tract; Z86.39 Personal history of other endocrine, nutritional and metabolic disease
CPT/HCPCS: 36415; 80053; 80306; 80320; 81000; 84703; 85025; 96374

== ENCOUNTER → 2018-01-21 | Outpatient (CLI) | payer OTHER ==
[~2018-01-21] MED LIST changes: +IOHEXOL 350 MG/ML 100 ML (OMNIPAQUE 350) VIAL IV ONE; +NS 250 ML (IVPB) BAG IV ONE
--- NOTE | 2018-01-21 11:13 | Diagnostic Imaging Report ---
PROCEDURE: CT abdomen and pelvis with contrast. TECHNIQUE: Multiple contiguous axial images were obtained through the abdomen and pelvis after administration of intravenous contrast. INDICATION: Pelvic pain. The previous CT abdomen/pelvis exam of 11/26/2016 noted constipation but failed to show any sign of an acute abnormality. On this exam there does seem to be much less fecal material throughout the colon than during the prior exam. There is still no evidence for diverticulosis or diverticulitis. The appendix is surgically absent. There is no pelvic mass or free fluid collection identified. The urinary bladder is grossly unremarkable. The liver is homogeneous and not enlarged. The spleen, pancreas, adrenals, gallbladder, kidneys, aorta and inferior vena cava are unremarkable for an acute abnormality The stomach is filled with fluid and consequently difficult to assess. There is no obvious gastric abnormality evident. The lung bases are clear. The bone window shows no evidence for a fracture or for destructive lesion. IMPRESSION: 1. There is somewhat less fecal material throughout the colon than noted on the prior exam. There is still no evidence for an acute abnormality of the abdomen or pelvis. In particular, there is no pelvic mass visualized. 2. The uterus and appendix are surgically absent. Dictated by: Dictated on workstation # [id number]
--- NOTE | 2018-01-21 13:29 | Diagnostic Imaging Report ---
EXAMINATION: Digital mammogram bilateral screening with 3D tomosynthesis and CAD. COMPARISON: This is the patient's baseline study. PERSONAL HISTORY: At this time, there are no current complaints. FINDINGS: There are scattered fibroglandular densities in both breasts which could obscure a lesion. There is a small 4 mm benign-appearing nodular density in the 5-6 o'clock position of the retroareolar region of the left breast. There is no primary or secondary sign of malignancy noted. IMPRESSION: There is no evidence for malignancy. The patient should have her annual bilateral screening mammogram on schedule in January 2019. ACR BI-RADS Category 1: Negative. Result letter will be mailed to the patient. Note: At least 10% of breast cancer is not imaged by mammography. Dictated by: Dictated on workstation # [id number]
== END ==
LOC: RAD 09:03
PROVIDERS: ATTEND Nurse Practitioner
DX: Z12.31 Encounter for screening mammogram for malignant neoplasm of breast (principal); R10.2 Pelvic and perineal pain; Z90.49 Acquired absence of other specified parts of digestive tract; Z90.710 Acquired absence of both cervix and uterus
CPT/HCPCS: 74177; 77067

== ENCOUNTER 2021-05-20 04:57 | Observation (INO) | payer BC, OTHER ==
[~2021-05-20] VITALS: Ht 152 cm; Wt 72.2 kg
[~2021-05-20 04:57] MED LIST changes: -IOHEXOL 350 MG/ML 100 ML (OMNIPAQUE 350) VIAL IV ONE; -NS 250 ML (IVPB) BAG IV ONE
--- NOTE | 2021-05-20 05:07 | ED General ---
General Stated Complaint: DRUNK,POSS OVERDOSE Source of Information: EMS Exam Limitations: Intoxication (WANDA CASAS MD) History of Present Illness Date Seen by Provider: May 20, 2021 Time Seen by Provider: 05:02 Initial Comments Patient is a 45-year-old female who presents to the emergency department today with a chief complaint of intoxication and possible overdose. Patient reportedly woke her up this morning telling him to hold her. She implied that she had taken an overdose of medications. He called 911. The patient arrives somnolent with slurred speech appears intoxicated but answers questions. She does admit that this was a suicide attempt. She states she has had attempts in the past. She states she took "old medicine". Rest of the HPI from the patient is difficult to obtain secondary to her clinical state. Review of systems also difficult to obtain secondary to her intoxicated state. Medical records reviewed - patient noted to have previous admissions for overdose/suicide attempt. at least one hospitalization resulted in intubation for respiratory decline. Patient with history (?) of Bipolar disorder. Discussion with . He states he is felt like this episode has been coming on for at least a few weeks. He states she has had accelerated drinking in recent days. Specifically over the last 3 days. He states that she saw her psychiatrist on Saturday and they changed her Klonopin prescription. She sees a psychiatrist in [place]. She has had previous suicide attempts with hospitalizations. She has had alcohol detox in [place] and another state. He reports no recent illnesses. No specific triggers. He states she is obsessed with the news regarding recent activities and government issues. They have a son who joined the [employer] last year and since that time she has had increasing obsession with things. He states she does not sleep and sometimes will go 2 to 3 days without sleeping. He states she is not consistent with her daily medications. He states she has a history of seizures and when she drinks it tends to exacerbate them. She is a fall risk. states he is going to go home and take care of their children. I advised him we will contact him once we have sobered her up a little bit. He is going to look and see if there are any other pill bottles at home, specifically the "old medicine" that she has taken. Timing/Duration: 1 Hour Severity: Severe (WANDA CASAS MD) Allergies and Home Medications Allergies Coded Allergies: carisoprodol (Unverified Allergy, Mild, 03/27/09) oxcarbazepine (Unverified Allergy, Mild, 03/27/09) tramadol (Unverified Allergy, Unknown, 03/12/15) Patient Home Medication List Home Medication List Reviewed: Yes (WANDA CASAS MD) Amoxicillin/Clavulanate K (Augmentin 875 Mg Tablet) 875 Mg Tab, 875 MG PO BID WITH MEALS Prescribed by: DAISY ABARCA on 03/14/15 1244 Mupirocin Calcium (Bactroban) 15 Gm Cream..g., 15 GM TP UD Prescribed by: TIFFANY VORA on 11/26/161947 Ondansetron (Zofran Odt) 8 Mg Tab.rapdis, 8 MG PO Q6H PRN for NAUSEA Prescribed by: TIFFANY VORA on 11/26/161947 [Hydroxyzine Hcl] 10 MG TAB, 10 MG PO TID PRN for ANXIETY Prescribed by: DAISY ABARCA on 03/14/15 1244 Review of Systems Review of Systems Constitutional: see HPI Psychiatric/Neurological: Depressed (WANDA CASAS MD) All Other Systems Reviewed Negative Unless Noted: Yes (WANDA CASAS MD) Past Lxartob-Llbzbr-Xmbrgv Hx Immunizations Up To Date Tetanus Booster (TDap): Unknown (WANDA CASAS MD) Past Medical History Surgeries: Yes (HYSTERECTOMY,APPY,ENDOMETRIOSIS REMOVED) Appendectomy, Hysterectomy Respiratory: No Cardiac: No Neurological: Yes Headaches /Migraines, Seizure Disorder Reproductive Disorders: Yes (GR6,PARA3-2MISCARRIAGES,1 TUBAL PREG.) Gastrointestinal: Yes Musculoskeletal: No Endocrine: No HEENT: No Cancer: No Psychosocial: Yes (DIAGNOSED BIPOLAR PER PT) PTSD, Suicide Attempts, Depression Integumentary: Yes ("MRSA everywhere") Blood Disorders: No (WANDA CASAS MD) Family Medical History No Pertinent Family Hx (WANDA CASAS MD) Physical Exam Vital Signs Vital Signs - First Documented 05/20/21 05:03 Temp 36.0 Pulse 78 Resp 18 B/P (MAP) 125/70 (88) Pulse Ox 96 O2 Delivery Room Air (KARIS CHIN MD) Vital Signs Capillary Refill : (WANDA CASAS MD) Height, Weight, BMI Height: 5'0" Weight: 150lbs. 0oz. 68.036803zh; 21.46 BMI Method:Stated General Appearance: No Apparent Distress, WD/WN Eyes: Bilateral Eye Normal Inspection, Bilateral Eye PERRL, Bilateral Eye EOMI HEENT: PERRL/EOMI, Other (dry mucous membranes) Neck: Supple Respiratory: Lungs Clear, Normal Breath Sounds, No Accessory Muscle Use, No Respiratory Distress Cardiovascular: Regular Rate, Rhythm Gastrointestinal: Normal Bowel Sounds, Non Tender, Soft Genital/Rectal: Normal Genital Exam Extremity: Normal Inspection, Normal Range of Motion Neurologic/Psychiatric: Depressed Affect, Other (somnolent; disoriented to situation) Skin: Normal Color, Warm/Dry (WANDA CASAS MD) Progress/Results/Core Measures Suspected Sepsis SIRS Temperature: Pulse: Respiratory Rate: Laboratory Tests 05/20/21 05:03: White Blood Count 6.6 Blood Pressure / Mean: Laboratory Tests 05/20/21 05:03: Creatinine 0.62, Platelet Count 257, Total Bilirubin 0.2 (WANDA CASAS MD) Results/Orders Lab Results Laboratory Tests Test 05/20/21 05:03 05/20/21 05:24 05/20/21 07:15 Range/Units White Blood Count 6.6 4.3-11.0 10^3/uL Red Blood Count 3.99 3.80-5.11 10^6/uL Hemoglobin 12.8 11.5-16.0 g/dL Hematocrit 36 35-52 % Mean Corpuscular Volume 91 80-99 fL Mean Corpuscular Hemoglobin 32 25-34 pg Mean Corpuscular Hemoglobin Concent 35 32-36 g/dL Red Cell Distribution Width 11.7 10.0-14.5 % Platelet Count 257 130-400 10^3/uL Mean Platelet Volume 9.5 9.0-12.2 fL Immature Granulocyte % (Auto) 0 % Neutrophils (%) (Auto) 48 42-75 % Lymphocytes (%) (Auto) 41 12-44 % Monocytes (%) (Auto) 8 0-12 % Eosinophils (%) (Auto) 3 0-10 % Basophils (%) (Auto) 1 0-10 % Neutrophils # (Auto) 3.2 1.8-7.8 10^3/uL Lymphocytes # (Auto) 2.7 1.0-4.0 10^3/uL Monocytes # (Auto) 0.5 0.0-1.0 10^3/uL Eosinophils # (Auto) 0.2 0.0-0.3 10^3/uL Basophils # (Auto) 0.1 0.0-0.1 10^3/uL Immature Granulocyte # (Auto) 0.0 0.0-0.1 10^3/uL Sodium Level 135 135-145 MMOL/L Potassium Level 3.8 3.6-5.0 MMOL/L Chloride Level 101 98-107 MMOL/L Carbon Dioxide Level 21 21-32 MMOL/L Anion Gap 13 5-14 MMOL/L Blood Urea Nitrogen 13 7-18 MG/DL Creatinine 0.62 0.60-1.30 MG/DL Estimat Glomerular Filtration Rate 103 BUN/Creatinine Ratio 21 Glucose Level 103 70-105 MG/DL Calcium Level 8.8 8.5-10.1 MG/DL Corrected Calcium 8.8 8.5-10.1 MG/DL Total Bilirubin 0.2 0.1-1.0 MG/DL Aspartate Amino Transf (AST/SGOT) 20 5-34 U/L Alanine Aminotransferase (ALT/SGPT) 22 0-55 U/L Alkaline Phosphatase 69 40-136 U/L Total Protein 6.6 6.4-8.2 GM/DL Albumin 4.0 3.2-4.5 GM/DL Salicylates Level < 5.0 L 5.0-20.0 MG/DL Acetaminophen Level < 10 L 10-30 UG/ML Serum Alcohol 273 H <10 MG/DL Urine Opiates Screen NEGATIVE NEGATIVE Urine Oxycodone Screen NEGATIVE NEGATIVE Urine Methadone Screen NEGATIVE NEGATIVE Urine Propoxyphene Screen NEGATIVE NEGATIVE Urine Barbiturates Screen NEGATIVE NEGATIVE Ur Tricyclic Antidepressants Screen NEGATIVE NEGATIVE Urine Phencyclidine Screen NEGATIVE NEGATIVE Urine Amphetamines Screen NEGATIVE NEGATIVE Urine Methamphetamines Screen NEGATIVE NEGATIVE Urine Benzodiazepines Screen POSITIVE H NEGATIVE Urine Cocaine Screen NEGATIVE NEGATIVE Urine Cannabinoids Screen NEGATIVE NEGATIVE SARS-CoV-2 RNA (RT-PCR) Not Detected Not Detecte (KARIS CHIN MD) My Orders Orders - KARIS CHIN MD Covid 19 Inhouse Test (05/20/21 07:07) (KARIS CHIN MD) Vital Signs/I&O 05/20/21 05:03 Temp 36.0 Pulse 78 Resp 18 B/P (MAP) 125/70 (88) Pulse Ox 96 O2 Delivery Room Air (KARIS CHIN MD) Vital Signs/I&O Capillary Refill : (WANDA CASAS MD) Progress Note : Time: 06:12 Progress Note No ICU bed available at this time. Will hold in the ER and fluid resuscitate, see if we can sober her up a little and possibly she can get screened. If not, will take an ICU bed for further clearance and then possible placement in a psych facility. (WANDA CASAS MD) Progress Note : Time: 07:23 Progress Note I assumed care of this patient from Dr. Casas at shift change. Patient was noted to be hypoxic with oxygen saturation as low as 86% while asleep with snoring respirations. She was arousable and stated she has history of sleep apnea and is supposed to use a CPAP machine. She is able to answer some questions with mumbling speech. She does not answer what medications she took last night. Much of her speech is not discernible. Covid swab was obtained in anticipation of eventual transfer to [facility]. Patient is able to state to me that she is in the hospital and she did try to harm herself last night. Oxygen saturation promptly resuscitated when she woke. I applied nasal cannula at 2 L/min. (KARIS CHIN MD) ECG Initial ECG Impression Date: May 20, 2021 Initial ECG Impression Time: 05:30 Initial ECG Rate: 71 Initial ECG Rhythm: Normal Sinus Initial ECG Intervals: Normal Initial ECG Impression: Normal Initial ECG Comparisson: No Previous ECG Available (WANDA CASAS MD) Departure Communication (Admissions) Time/Spoke to Admitting Phy: 07:38 Dr. Abarca (KARIS CHIN MD) Impression Primary Impression: Alcohol intoxication Qualified Codes: F10.921 - Alcohol use, unspecified with intoxication delirium Additional Impression: Suicidal ideation Disposition: ADMITTED INPATIENT Condition: Stable Admissions Decision to Admit Reason: Admit from ER (General) Decision to Admit/Date: May 20, 2021 Time/Decision to Admit Time: 06:11 (WANDA CASAS MD) Decision to Admit Reason: Admit from ER (General) Decision to Admit/Date: May 20, 2021 Time/Decision to Admit Time: 06:11 (KARIS CHIN MD) Departure-Patient Inst. Referrals: JACEK VILLARREAL MD (PCP/Family) Primary Care Physician WANDA CASAS MD May 20, 2021 05:07 KARIS CHIN MD May 20, 2021 07:26
[2021-05-20 05:08] LABS: BASOPHILS # (AUTO) 0.1 10^3/uL (0.0-0.1); BASOPHILS % (AUTO) 1 % (0-10); EOSINOPHILS # (AUTO) 0.2 10^3/uL (0.0-0.3); EOSINOPHILS % (AUTO) 3 % (0-10); HEMATOCRIT 36 % (35-52); HEMOGLOBIN 12.8 g/dL (11.5-16.0); LYMPHOCYTES # (AUTO) 2.7 10^3/uL (1.0-4.0); LYMPHOCYTES % (AUTO) 41 % (12-44); MEAN CORPUSCULAR HEMOGLOBIN 32 pg (25-34); MEAN CORPUSCULAR HGB CONC 35 g/dL (32-36); MEAN CORPUSCULAR VOLUME 91 fL (80-99); MEAN PLATELET VOLUME 9.5 fL (9.0-12.2); MONOCYTES # (AUTO) 0.5 10^3/uL (0.0-1.0); MONOCYTES % (AUTO) 8 % (0-12); NEUTROPHILS # (AUTO) 3.2 10^3/uL (1.8-7.8); NEUTROPHILS % (AUTO) 48 % (42-75); PLATELET COUNT 257 10^3/uL (130-400); WHITE BLOOD COUNT 6.6 10^3/uL (4.3-11.0)
[2021-05-20 05:17] LABS: CHLORIDE 101 MMOL/L (98-107); POTASSIUM 3.8 MMOL/L (3.6-5.0); SODIUM 135 MMOL/L (135-145)
[2021-05-20 05:18] LABS: CALCIUM 8.8 MG/DL (8.5-10.1)
[2021-05-20 05:20] LABS: GLUCOSE 103 MG/DL (70-105); TOTAL PROTEIN 6.6 GM/DL (6.4-8.2)
[2021-05-20 05:21] LABS: BILIRUBIN,TOTAL 0.2 MG/DL (0.1-1.0); CARBON DIOXIDE 21 MMOL/L (21-32)
[2021-05-20 05:23] LABS: ALKALINE PHOSPHATASE 69 U/L (40-136); CREATININE SERUM 0.62 MG/DL (0.60-1.30); GFR ESTIMATED 103
[2021-05-20 05:25] LABS: BUN/CREATININE RATIO 21
[2021-05-20 05:26] LABS: SALICYLATE < 5.0 MG/DL (5.0-20.0)
[2021-05-20 05:27] LABS: ACETAMINOPHEN < 10 UG/ML (10-30); ALANINE AMINOTRANSFERASE 22 U/L (0-55)
[2021-05-20] MEDS: NS IV 1000 ML 1,000 ML IV SCH ×2 (05:31→06:15)
[2021-05-20 05:43] LABS: AMPHETAMINE SCREEN, URINE NEGATIVE (NEGATIVE); BARBITURATE SCREEN URINE NEGATIVE (NEGATIVE); BENZODIAZEPINES SCREEN URINE POSITIVE (NEGATIVE); CANNABINOID SCREEN, URINE NEGATIVE (NEGATIVE); COCAINE SCREEN URINE NEGATIVE (NEGATIVE); METHADONE STAT NEGATIVE (NEGATIVE); METHAMPHETAMINE SCREEN URINE S NEGATIVE (NEGATIVE); OPIATE SCREEN URINE NEGATIVE (NEGATIVE); OXYCODONE STAT NEGATIVE (NEGATIVE); PROPOXYPHENE STAT NEGATIVE (NEGATIVE); TRICYCLIC ANTIDEPRESSANTS SCRE NEGATIVE (NEGATIVE)
--- NOTE | 2021-05-20 07:47 | History & Physical-Hospitalist ---
History of Present Illness HPI/Chief Complaint CC: OD with ETOH intoxication HPI: This is a 45yoWF who presented to the ER with suspicion for OD with ETOH intoxication. Unable to obtain any details. Source: RN/MD Exam Limitations: clinical condition Date Seen 05/20/21 Time Seen by a Provider: 11:00 Attending Physician PCP Emma Cordero MD Referring Physician Date of Admission Home Medications & Allergies Home Medications Reviewed patient Home Medication Reconciliation performed by pharmacy medication reconciliations environmental services technician and/or nursing. Patients Allergies have been reviewed. Allergies Allergies Coded Allergies carisoprodol (Unverified Allergy, Mild, 03/27/09) oxcarbazepine (Unverified Allergy, Mild, 03/27/09) tramadol (Unverified Allergy, Unknown, 03/12/15) Past Tkjajrk-Xdtmfe-Irytro Hx Patient Social History Marrital Status: Employed/Student: unemployed Tobacco Use?: Yes Tobacco type used: Cigarettes Smoking Status: Current Everyday Smoker Use of E-Cig and/or Vaping dev: No Substance use?: No Alcohol type: Beer Alcohol Frequency: Several times a month Pt feels they are or have been: No Immunizations Up To Date Tetanus Booster (TDap): Unknown Current Status status: No Advance Directives: No Communicates: Verbally Primary Language: Bulgarian Preferred Spoken Language: Bulgarian Is interpretation needed?: No Implanted or Applied Medical D: None Past Medical History Surgeries: Appendectomy, Hysterectomy Headaches /Migraines, Seizure Disorder PTSD, Suicide Attempts, Depression Nursing Suicide Risk Notes: brought in by [facility] for possible o/d, etoh intoxication. per ems pt woke her up et. stated she wished to be held et. could not undue what she'd done. ems brought in ()-xanax tablets filled 05/16/21. ()-clonazepam 1mg tablet, filled 02/09/21, () trazadone 100mg tablets filled , () vistaril 50mg tablets filled 12/15/20. Blood Disorders: No Family Medical History No Pertinent Family Hx Review of Systems Constitutional: see HPI Physical Exam Physical Exam Vital Signs Vital Signs - First Documented 05/20/21 05/20/21 05:03 10:30 Temp 36.0 Pulse 78 Resp 18 B/P (MAP) 125/70 (88) Pulse Ox 96 O2 Delivery Room Air O2 Flow Rate 2.00 Capillary Refill : Less Than 3 Seconds Height, Weight, BMI Height: 5'0" Weight: 150lbs. 0oz. 68.655180zf; 30.00 BMI Method:Stated General Appearance: No Apparent Distress Respiratory: Lungs Clear, Normal Breath Sounds Cardiovascular: Regular Rate, Rhythm Results Results/Procedures Labs Laboratory Tests 05/20/21 05:03 Patient resulted labs reviewed. Assessment/Plan Admission Diagnosis Assessment: OD ETOH intoxication Plan: Supportive care Admission Status: Observation DAISY ABARCA DO May 20, 2021 07:46
[2021-05-20] MEDS ORDERED: ONDANSETRON 4 MG/2 ML (SDV) Z0FRAN IV PRN ×2 (10:45→11:45)
[2021-05-20] MEDS ORDERED: LACTATED RINGERS 1,000 ML IV SCH (10:45)
[2021-05-20 11:12] VITALS: BP 92/51
[2021-05-20] MEDS ORDERED: LORazepam INJ 2 MG/ML (ATIVAN) VIAL IM/IV PRN (11:45)
[2021-05-20] MEDS ORDERED: SENNA W/DOCUSATE (SENOKOT S) TABLET PO PRN (11:45)
[2021-05-20] MEDS ORDERED: 1/2 NS IV SOLUTION 1,000 ML IV PRN (11:45)
[2021-05-20] MEDS ORDERED: ANTACID SUSP 30 ML UDC (MYLANTA) PO PRN (11:45)
[2021-05-20] MEDS ORDERED: LORazepam 1 MG (ATIVAN) TAB PO PRN (11:45)
[2021-05-20] MEDS ORDERED: LORazepam INJ 2 MG/ML (ATIVAN) VIAL IV PRN (11:45)
[2021-05-20] MEDS ORDERED: D5 1/2 NS 1000 ML IV SOLUTION 1,000 ML IV PRN (11:45)
[2021-05-20] MEDS: FAMOTIDINE 20 MG (PEPCID) TABLET PO SCH ×2 (11:52→20:39)
[2021-05-20] MEDS: ENOXAPARIN 40 MG/0.4 ML (LOVENOX) SYR SC SCH (11:53)
[2021-05-20 12:00] VITALS: BP 111/56
[2021-05-20] MEDS ORDERED: TRAZ-227 (14:50)
[2021-05-20] MEDS ORDERED: ALPR1TAB7 (14:50)
[2021-05-20] MEDS ORDERED: ALPR1TAB10 (14:50)
[2021-05-20] MEDS ORDERED: LISD50CA (14:52)
[2021-05-20] MEDS ORDERED: PROP20TA5 (14:52)
[2021-05-20] MEDS ORDERED: ESTR1TAB24 (14:52)
[2021-05-20 16:21] VITALS: BP 128/58
[2021-05-20 20:27] VITALS: BP 111/54
[2021-05-20] MEDS: ONDANSETRON 4 MG (ZOFRAN) ORAL DISSOLVE TAB SL PRN (20:39)
[2021-05-20 23:30] VITALS: BP 110/60
[2021-05-21 03:38] VITALS: BP 136/79
[2021-05-21] MEDS: ONDANSETRON 4 MG (ZOFRAN) ORAL DISSOLVE TAB SL PRN (03:54)
[2021-05-21 07:05] LABS: BASOPHILS % (AUTO) 1 % (0-10); EOSINOPHILS # (AUTO) 0.1 10^3/uL (0.0-0.3); EOSINOPHILS % (AUTO) 1 % (0-10); HEMATOCRIT 34 % (35-52); HEMOGLOBIN 11.9 g/dL (11.5-16.0); LYMPHOCYTES # (AUTO) 2.3 10^3/uL (1.0-4.0); LYMPHOCYTES % (AUTO) 46 % (12-44); MEAN CORPUSCULAR HEMOGLOBIN 32 pg (25-34); MEAN CORPUSCULAR HGB CONC 35 g/dL (32-36); MEAN CORPUSCULAR VOLUME 93 fL (80-99); MEAN PLATELET VOLUME 9.4 fL (9.0-12.2); MONOCYTES # (AUTO) 0.5 10^3/uL (0.0-1.0); MONOCYTES % (AUTO) 10 % (0-12); NEUTROPHILS # (AUTO) 2.1 10^3/uL (1.8-7.8); NEUTROPHILS % (AUTO) 42 % (42-75); PLATELET COUNT 248 10^3/uL (130-400)
[2021-05-21 07:14] LABS: ALBUMIN 3.4 GM/DL (3.2-4.5)
[2021-05-21 07:15] LABS: POTASSIUM 3.6 MMOL/L (3.6-5.0)
[2021-05-21 07:16] LABS: CALCIUM 8.2 MG/DL (8.5-10.1)
[2021-05-21 07:17] LABS: TOTAL PROTEIN 5.7 GM/DL (6.4-8.2)
[2021-05-21 07:19] LABS: BILIRUBIN,TOTAL 0.4 MG/DL (0.1-1.0)
[2021-05-21 07:21] LABS: CREATININE SERUM 0.7 MG/DL (0.60-1.30)
[2021-05-21 07:53] VITALS: BP 124/64
[2021-05-21] MEDS ORDERED: THIAMINE INJECTION 100 MG, FOLIC ACID INJECTION 1 MG, MAGNESIUM SULFATE 2 GM, VITAMIN M... IV SCH ×5 (09:00)
[2021-05-21] MEDS: FAMOTIDINE 20 MG (PEPCID) TABLET PO SCH (11:20)
[2021-05-21] MEDS: ENOXAPARIN 40 MG/0.4 ML (LOVENOX) SYR SC SCH (11:21)
--- NOTE | 2021-05-21 12:30 | Discharge Summary ---
Discharge Summary Hospital Course Was the Problem List Reviewed?: Yes Problems/Dx: (1) Alcohol intoxication Status: Acute Qualifiers: Qualified Codes: F10.921 - Alcohol use, unspecified with intoxication delirium Hospital Course Date of Admission: May 20, 2021 at 07:29 Admission Diagnosis : Family Physician/Provider: Emma Cordero MD Date of Discharge: 05/21/21 Discharge Diagnosis: Alcohol intoxication, suspicion for overdose of unknown medication Hospital Course: Patient has short observation hospital course she was admitted placed in observation due to suspicion of overdose of unknown amount of medication and alcohol intoxication. It appeared after she was clinically improved she did not take any pills and did not have any suicidal ideation at that time. She was deemed stable for discharge. Labs and Pending Lab Test: Laboratory Tests 05/21/21 06:41: White Blood Count 5.0, Red Blood Count 3.71L, Hemoglobin 11.9, Hematocrit 34L, Mean Corpuscular Volume 93, Mean Corpuscular Hemoglobin 32, Mean Corpuscular Hemoglobin Concent 35, Red Cell Distribution Width 12.3, Platelet Count 248, Mean Platelet Volume 9.4, Immature Granulocyte % (Auto) 0, Neutrophils (%) (Auto) 42, Lymphocytes (%) (Auto) 46H, Monocytes (%) (Auto) 10, Eosinophils (%) (Auto) 1, Basophils (%) (Auto) 1, Neutrophils # (Auto) 2.1, Lymphocytes # (Auto) 2.3, Monocytes # (Auto) 0.5, Eosinophils # (Auto) 0.1, Basophils # (Auto) 0.0, Immature Granulocyte # (Auto) 0.0, Sodium Level 140, Potassium Level 3.6, Chloride Level 109H, Carbon Dioxide Level 20L, Anion Gap 11, Blood Urea Nitrogen 8, Creatinine 0.70, Estimat Glomerular Filtration Rate 90, BUN/Creatinine Ratio 11, Glucose Level 87, Calcium Level 8.2L, Corrected Calcium 8.7, Total Bilirubin 0.4, Aspartate Amino Transf (AST/SGOT) 16, Alanine Aminotransferase (ALT/SGPT) 17, Alkaline Phosphatase 49, Total Protein 5.7L, Albumin 3.4 Home Meds Active Zofran Odt (Ondansetron) 8 Mg Tab.rapdis 8 Mg PO Q6H PRN Bactroban (Mupirocin Calcium) 15 Gm Cream..g. 15 Gm TP UD apply bactroban to the nostrils BID x5d. Repeatedly squeeze the nostrils for 1-2 min after application. Augmentin 875 Mg Tablet (Amoxicillin/Clavulanate K) 875 Mg Tab 875 Mg PO BID WITH MEALS [Hydroxyzine Hcl] 10 MG Tab 10 Mg PO TID PRN Reported Propranolol HCl 20 Mg Tablet Estradiol Tablet (Estradiol) 1 Mg Tablet Vyvanse (Lisdexamfetamine Dimesylate) 50 Mg Capsule Trazodone HCl 100 Mg Tablet Alprazolam 1 Mg Tablet Alprazolam ER (Alprazolam) 1 Mg Tab.er.24h Assessment/Pt Instructions [facility] in 1 week Discharge Planning: <30 minutes discharge planning Discharge Instructions Discharge Diet: No Restrictions Activity as Tolerated: Yes Discharge Physical Examination Vital Signs Vital Signs Date Time Temp Pulse Resp B/P (MAP) Pulse Ox O2 Delivery O2 Flow Rate FiO2 05/21/21 07:53 36.6 76 20 124/64 (84) 95 Room Air 05/20/21 10:30 2.00 General Appearance: No Apparent Distress, WD/WN Allergies: Coded Allergies: carisoprodol (Unverified Allergy, Mild, 03/27/09) oxcarbazepine (Unverified Allergy, Mild, 03/27/09) tramadol (Unverified Allergy, Unknown, 03/12/15) Discharge Summary Date of Admission May 20, 2021 at 07:29 Date of Discharge Discharge Date: May 21, 2021 Admission Diagnosis Assessment: OD ETOH intoxication Plan: Supportive care DAISY ABARCA DO May 21, 2021 12:30
== END 2021-05-21 14:30 | disposition home or self-care (01) ==
LOC: EDUNIT# 04:57 → ER 04:58 → ICU 07:29 → 4TH 17:30
PROVIDERS: ADMIT Internal Medicine; ATTEND Internal Medicine
DX: T50.902A Poisoning by unspecified drugs, medicaments and biological substances, intentional self-harm, initial encounter (principal); F10.129 Alcohol abuse with intoxication, unspecified; F32.9 Major depressive disorder, single episode, unspecified; F17.210 Nicotine dependence, cigarettes, uncomplicated; R45.851 Suicidal ideations; Z79.899 Other long term (current) drug therapy; Z79.2 Long term (current) use of antibiotics
CPT/HCPCS: 80053 ×2; 80306; 85025 ×2; 87636; 93005; 99285; G0480 ×3; 36415; 80320; 80329; G0378